=== PATIENT | female | born 1995 | race Caucasian/White ===

== ENCOUNTER 2019-12-04 18:26 | Emergency (ER) | payer OTHER ==
--- NOTE | 2019-12-04 20:09 | EDM.PDOC ---
ED HPI GENERAL MEDICAL PROBLEM - General Chief Complaint: General Stated Complaint: FLU Time Seen by Provider: 12/04/19 18:42 Source of Information: Reports: Patient History Limitations: Reports: No Limitations - History of Present Illness INITIAL COMMENTS - FREE TEXT/NARRATIVE: HISTORY AND PHYSICAL: History of present illness: Patient is a 24-year-old female who presents to the ED today with concern of generalized body aches, sore throat, and cough over the last 2 days. Patient states that her daughter had started with similar symptoms of cough 3 days ago. Mother states she has not taken any thing for her symptoms. Mother denies any other symptoms or concerns. Patient denies chest pain, shortness of breath. Denies headache, neck stiff ness , change in vision, syncope, or near syncope. Denies nausea, vomiting, abdominal pain, diarrhea, constipation, or dysuria. Has not noted any blood in urine or stool. Patient has been eating and drinking appropriately. Review of systems: As per history of present illness and below otherwise all systems reviewed and negative. Past medical history: As per history of present illness and as reviewed below otherwise noncontributory. Surgical history: As per history of present illness and as reviewed below otherwise noncontributory. Social history: See social history for further information Family history: As per history of present illness and as reviewed below otherwise noncontributory. Physical exam: General: Patient is alert, oriented, and in no acute distress. Patient sitting comfortably on exam table. HEENT: Atraumatic, normocephalic, pupils equal and reactive bilaterally, negative for conjunctival pallor or scleral icterus, mucous membranes moist, TMs normal bilaterally, throat is erythematous and tonsils without exudate and equal, uvula midline, neck supple, nontender, trachea midline. No drooling or trismus noted. No meningeal signs. No hot potato voice noted. Lungs: Clear to auscultation, breath sounds equal bilaterally, chest nontender. Heart: S1S2, regular rate and rhythm without overt murmur Abdomen: Soft, nondistended, nontender. Negative for masses or hepatosplenomegaly. Negative for costovertebral tenderness. Pelvis: Stable nontender. Genitourinary: Deferred. Rectal: Deferred. Skin: Intact, warm, dry. No lesions or rashes noted. Extremities: Atraumatic, negative for cords or calf pain. Neurovascular unremarkable. Neuro: Awake, alert, oriented. Cranial nerves II through XII unremarkable. Cerebellum unremarkable. Motor and sensory unremarkable throughout. Exam nonfocal. Notes: Discussed importance for follow-up with a primary care provider. Voices understanding and is agreeable to plan of care. Denies any further questions or concerns at this time. Diagnostics: Influenza, Strep Therapeutics: None Prescription: Amoxicillin, Tamiflu Impression: Influenza A Strep pharyngitis Plan: 1. Take medication as prescribed. You can alternate ibuprofen and Tylenol as directed for pain and discomfort. 2. Follow-up with your primary care provider as discussed. Return to the ED as needed and as discussed. Definitive disposition and diagnosis as appropriate pending reevaluation and review of above. Back Pain Score (Numeric/FACES): 8 - Related Data Allergies Allergy/AdvReac Type Severity Reaction Status Date / Time No Known Allergies Allergy Verified 12/04/19 19:29 Home Meds: Home Meds . 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 Musculoskeletal History: Reports: None Neurological History: Reports: None Psychiatric History: Reports: None Endocrine/Metabolic History: Reports: None Hematologic History: Reports: None Immunologic History: Reports: None Oncologic (Cancer) History: Reports: None Dermatologic History: Reports: None - Infectious Disease History Infectious Disease History: Reports: None - Past Surgical History Head Surgeries/Procedures: Reports: None GI Surgical History: Reports: Appendectomy Female Surgical History: Reports: None Social & Family History - Tobacco Use Smoking Status *Q: Never Smoker - Caffeine Use Caffeine Use: Reports: None - Recreational Drug Use Recreational Drug Use: No ED ROS GENERAL - Review of Systems Review Of Systems: Comprehensive ROS is negative, except as noted in HPI. ED EXAM, GENERAL - Physical Exam Exam: See Below (see dictation) Course - Vital Signs Last Recorded V/S: Last Vital Signs Temp 97.8 F 12/04/19 19:26 Pulse 102 H 12/04/19 19:26 Resp 20 12/04/19 19:26 BP 130/83 12/04/19 19:26 Pulse Ox 96 12/04/19 19:26 Departure - Departure Time of Disposition: 20:12 Disposition: Home, Self-Care 01 Clinical Impression: Strep pharyngitis, Influenza A - Discharge Information Referrals: PCP,None [Primary Care Provider] - Forms: ED Department Discharge Additional Instructions: The following information is given to patients seen in the emergency department who are being discharged to home. This information is to outline your options for follow-up care. We provide all patients seen in our emergency department with a follow-up referral. The need for follow-up, as well as the timing and circumstances, are variable depending upon the specifics of your emergency department visit. If you don't have a primary care physician on staff, we will provide you with a referral. We always advise you to contact your personal physician following an emergency department visit to inform them of the circumstance of the visit and for follow-up with them and/or the need for any referrals to a consulting specialist. The emergency department will also refer you to a specialist when appropriate. This referral assures that you have the opportunity for follow-up care with a specialist. All of these measure are taken in an effort to provide you with optimal care, which includes your follow-up. Under all circumstances we always encourage you to contact your private physician who remains a resource for coordinating your care. When calling for follow-up care, please make the office aware that this follow-up is from your recent emergency room visit. If for any reason you are refused follow-up, please contact the [facility] Emergency Department at and asked to speak to the emergency department charge nurse. [facility] [address] [place] [id number] [id number] 1. Take medication as prescribed. You can alternate ibuprofen and Tylenol as directed for pain and discomfort. 2. Follow-up with your primary care provider as discussed. Return to the ED as needed and as discussed. Sepsis Event Note - Evaluation Sepsis Screening Result: No Definite Risk - Focused Exam Vital Signs: Vital Signs Temp Pulse Resp BP Pulse Ox 12/04/19 19:26 97.8 F 102 H 20 130/83 96 Date Exam was Performed: 12/04/19 Time Exam was Performed: 20:12
== END 2019-12-04 20:35 | disposition home or self-care (01) ==
LOC: MW.ED 18:26 → EDBD 18:26 → MW.ED 20:35
DX: J10.1 Influenza due to other identified influenza virus with other respiratory manifestations (principal)
CPT/HCPCS: 87804; 87880-QW; 99283

== ENCOUNTER 2020-02-04 19:29 | Emergency (ER) | payer SELFPAY ==
--- NOTE | 2020-02-04 19:51 | EDM.PDOC ---
ED HPI GENERAL MEDICAL PROBLEM - General Chief Complaint: Genitourinary Problem Stated Complaint: KIDNEY PAIN Time Seen by Provider: 02/04/20 19:30 Source of Information: Reports: Patient History Limitations: Reports: No Limitations - History of Present Illness INITIAL COMMENTS - FREE TEXT/NARRATIVE: Patient is a 24-year-old female is complaining having severe left back pain that started earlier today. Pain is somewhat worse with movement. She denies any dysuria or hematuria but is complaining of increased urinary frequency. Patient has had a pyelonephritis before. She has no history of kidney stones. She is not coughing and denies any fever or chills. Has had no diarrhea. She is not currently nauseous and denies any abdominal pain. She denies any radiation or pain but she is having some pain also on the right side in the CVA area. She did treat herself with Tylenol about 4 PM which did give her some relief. Last menstrual period was last week but is only for 1 day which is abnormal for her. Patient is sexually active and not using any control. Onset: Today Duration: Getting Worse Location: Reports: Back Quality: Reports: Sharp, Stabbing Severity: Severe Improves with: Reports: None Worsens with: Reports: Movement Associated Symptoms: Reports: No Other Symptoms back Pain Score (Numeric/FACES): 9 - Related Data Allergies Allergy/AdvReac Type Severity Reaction Status Date / Time No Known Allergies Allergy Verified 02/04/20 19:45 Home Meds: Home Meds . 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 Musculoskeletal History: Reports: None Neurological History: Reports: None Psychiatric History: Reports: None Endocrine/Metabolic History: Reports: None Hematologic History: Reports: None Immunologic History: Reports: None Oncologic (Cancer) History: Reports: None Dermatologic History: Reports: None - Infectious Disease History Infectious Disease History: Reports: None - Past Surgical History Head Surgeries/Procedures: Reports: None GI Surgical History: Reports: Appendectomy Female Surgical History: Reports: None Social & Family History - Caffeine Use Caffeine Use: Reports: None ED ROS GENERAL - Review of Systems Review Of Systems: Comprehensive ROS is negative, except as noted in HPI. ED EXAM, RENAL/ - Physical Exam Exam: See Below General Appearance: Alert, Mild Distress Head: Atraumatic, Normocephalic Neck: Normal Inspection, Supple, Non-Tender Respiratory/Chest: No Respiratory Distress, Lungs Clear, Normal Breath Sounds Cardiovascular: Regular Rate, Rhythm, No JVD GI/Abdominal: Normal Bowel Sounds, Soft, Non-Tender, No Organomegaly, No Distention, No Mass Back Exam: CVA Tenderness (L) (Very mild right CVA tenderness.) Extremities: Normal Inspection Neurological: Alert, Oriented, Normal Cognition Psychiatric: Normal Affect Skin Exam: Warm, Dry, Intact Course - Vital Signs Text/Narrative:: Patient's blood work and urine were negative. She felt moderately better with IV fluids and meds. Concerned she might have an obstructing stone and ordered a CT of the abdomen pelvis which was read by radiologist as normal. I have informed patient that all her tests were normal and then most likely her symptoms are caused by muscle spasm/strain. Recommending heat and/or ice, ibuprofen and Flexeril as needed. We will also give her an antiemetic. And recommend she follow-up with her PCP if symptoms continue and she may return to emergency department if her symptoms are worse. Last Recorded V/S: Last Vital Signs Temp 36.3 C 02/04/20 19:34 Pulse 67 02/04/20 21:26 Resp 16 02/04/20 21:26 BP 114/71 02/04/20 21:26 Pulse Ox 99 02/04/20 21:26 - Orders/Labs/Meds Orders: Active Orders 24 hr Category Date Time Status Sodium Chloride 0.9% [Saline Flush] Med 02/04/20 19:57 Active 10 ml FLUSH ASDIRECTED PRN Sodium Chloride 0.9% [Saline Flush] Med 02/04/20 19:57 Active 2.5 ml FLUSH ASDIRECTED PRN Saline Lock Insert [OM.PC] Stat Oth 02/04/20 19:57 Ordered Medication Orders Sodium Chloride (Saline Flush) 10 ml FLUSH ASDIRECTED PRN PRN Reason: Keep Vein Open Sodium Chloride (Saline Flush) 2.5 ml FLUSH ASDIRECTED PRN PRN Reason: Keep Vein Open Labs: Laboratory Tests 03/26/20 03/26/20 03/26/20 Range/Units 19:50 19:50 20:05 WBC 6.68 (4.0-11.0) K/uL RBC 4.76 (4.30-5.90) M/uL Hgb 12.3 (12.0-16.0) g/dL Hct 38.4 (36.0-46.0) % MCV 80.7 (80.0-98.0) fL MCH 25.8 L (27.0-32.0) pg MCHC 32.0 (31.0-37.0) g/dL RDW Std Deviation 47.4 (28.0-62.0) fl RDW Coeff of Andrea 16 H (11.0-15.0) % Plt Count 412 H (150-400) K/uL MPV 9.70 (7.40-12.00) fL Neut % (Auto) 47.5 L (48.0-80.0) % Lymph % (Auto) 39.5 (16.0-40.0) % Posey % (Auto) 11.4 (0.0-15.0) % Eos % (Auto) 1.0 (0.0-7.0) % Baso % (Auto) 0.6 (0.0-1.5) % Neut # (Auto) 3.2 (1.4-5.7) K/uL Lymph # (Auto) 2.6 H (0.6-2.4) K/uL Posey # (Auto) 0.8 (0.0-0.8) K/uL Eos # (Auto) 0.1 (0.0-0.7) K/uL Baso # (Auto) 0.0 (0.0-0.1) K/uL Nucleated RBC % 0.0 /100WBC Nucleated RBCs # 0 K/uL Sodium (136-145) mmol/L Potassium (3.5-5.1) mmol/L Chloride (98-107) mmol/L Carbon Dioxide (21.0-32.0) mmol/L BUN (7.0-18.0) mg/dL Creatinine (0.6-1.0) mg/dL Est Cr Clr Drug Dosing mL/min Estimated GFR (MDRD) ml/min Glucose (74-106) mg/dL Calcium (8.5-10.1) mg/dL Total Bilirubin (0.2-1.0) mg/dL AST (15-37) IU/L ALT (14-63) IU/L Alkaline Phosphatase (46-116) U/L Total Protein (6.4-8.2) g/dL Albumin (3.4-5.0) g/dL Globulin (2.6-4.0) g/dL Albumin/Globulin Ratio (0.9-1.6) Urine Color YELLOW Urine Appearance CLEAR Urine pH 7.0 (5.0-8.0) Ur Specific [place] 1.020 (1.001-1.035) Urine Protein NEGATIVE (NEGATIVE) mg/dL Urine Glucose (UA) NEGATIVE (NEGATIVE) mg/dL Urine Ketones NEGATIVE (NEGATIVE) mg/dL Urine Occult Blood NEGATIVE (NEGATIVE) Urine Nitrite NEGATIVE (NEGATIVE) Urine Bilirubin NEGATIVE (NEGATIVE) Urine Urobilinogen 1.0 (<2.0) EU/dL Ur Leukocyte Esterase NEGATIVE (NEGATIVE) Urine HCG, Qual NEGATIVE (NEGATIVE) 02/04/20 Range/Units 20:05 WBC (4.0-11.0) K/uL RBC (4.30-5.90) M/uL Hgb (12.0-16.0) g/dL Hct (36.0-46.0) % MCV (80.0-98.0) fL MCH (27.0-32.0) pg MCHC (31.0-37.0) g/dL RDW Std Deviation (28.0-62.0) fl RDW Coeff of Andrea (11.0-15.0) % Plt Count (150-400) K/uL MPV (7.40-12.00) fL Neut % (Auto) (48.0-80.0) % Lymph % (Auto) (16.0-40.0) % Posey % (Auto) (0.0-15.0) % Eos % (Auto) (0.0-7.0) % Baso % (Auto) (0.0-1.5) % Neut # (Auto) (1.4-5.7) K/uL Lymph # (Auto) (0.6-2.4) K/uL Posey # (Auto) (0.0-0.8) K/uL Eos # (Auto) (0.0-0.7) K/uL Baso # (Auto) (0.0-0.1) K/uL Nucleated RBC % /100WBC Nucleated RBCs # K/uL Sodium 140 (136-145) mmol/L Potassium 3.7 (3.5-5.1) mmol/L Chloride 105 (98-107) mmol/L Carbon Dioxide 26.8 (21.0-32.0) mmol/L BUN 8 (7.0-18.0) mg/dL Creatinine 0.8 (0.6-1.0) mg/dL Est Cr Clr Drug Dosing 96.73 mL/min Estimated GFR (MDRD) > 60.0 ml/min Glucose 76 (74-106) mg/dL Calcium 8.9 (8.5-10.1) mg/dL Total Bilirubin 0.2 (0.2-1.0) mg/dL AST 17 (15-37) IU/L ALT 29 (14-63) IU/L Alkaline Phosphatase 64 (46-116) U/L Total Protein 7.7 (6.4-8.2) g/dL Albumin 3.9 (3.4-5.0) g/dL Globulin 3.8 (2.6-4.0) g/dL Albumin/Globulin Ratio 1.0 (0.9-1.6) Urine Color Urine Appearance Urine pH (5.0-8.0) Ur Specific [place] (1.001-1.035) Urine Protein (NEGATIVE) mg/dL Urine Glucose (UA) (NEGATIVE) mg/dL Urine Ketones (NEGATIVE) mg/dL Urine Occult Blood (NEGATIVE) Urine Nitrite (NEGATIVE) Urine Bilirubin (NEGATIVE) Urine Urobilinogen (<2.0) EU/dL Ur Leukocyte Esterase (NEGATIVE) Urine HCG, Qual (NEGATIVE) Meds: Medications Generic Name Dose Route Start Last Admin Trade Name Freq PRN Reason Stop Dose Admin Sodium Chloride 10 ml 02/04/20 19:57 Saline Flush FLUSH ASDIRECTED PRN Keep Vein Open Sodium Chloride 2.5 ml 02/04/20 19:57 Saline Flush FLUSH ASDIRECTED PRN Keep Vein Open Discontinued Medications Generic Name Dose Route Start Last Admin Trade Name Freq PRN Reason Stop Dose Admin Fentanyl 25 mcg 02/04/20 20:30 02/04/20 20:45 Fentanyl IVPUSH 02/04/20 20:31 25 mcg ONETIME ONE Administration Sodium Chloride 1,000 mls @ 999 mls/hr 02/04/20 19:54 02/04/20 20:15 Normal Saline IV 02/04/20 20:54 999 mls/hr .BOLUS ONE Administration Ketorolac Tromethamine 30 mg 02/04/20 19:55 02/04/20 20:16 Toradol IVPUSH 02/04/20 19:56 30 mg ONETIME ONE Administration Ondansetron HCl 4 mg 02/04/20 19:57 02/04/20 20:15 Zofran IVPUSH 02/04/20 19:58 4 mg ONETIME ONE Administration Departure - Departure Time of Disposition: 21:46 Disposition: Home, Self-Care 01 Condition: Good Clinical Impression: Back pain - Discharge Information Instructions: Acute Back Pain, Adult Referrals: PCP,None [Primary Care Provider] - Forms: ED Department Discharge Additional Instructions: The following information is given to patients seen in the emergency department who are being discharged to home. This information is to outline your options for follow-up care. We provide all patients seen in our emergency department with a follow-up referral. The need for follow-up, as well as the timing and circumstances, are variable depending upon the specifics of your emergency department visit. If you don't have a primary care physician on staff, we will provide you with a referral. We always advise you to contact your personal physician following an emergency department visit to inform them of the circumstance of the visit and for follow-up with them and/or the need for any referrals to a consulting specialist. The emergency department will also refer you to a specialist when appropriate. This referral assures that you have the opportunity for follow-up care with a specialist. All of these measure are taken in an effort to provide you with optimal care, which includes your follow-up. Under all circumstances we always encourage you to contact your private physician who remains a resource for coordinating your care. When calling for follow-up care, please make the office aware that this follow-up is from your recent emergency room visit. If for any reason you are refused follow-up, please contact the [facility] Emergency Department at and asked to speak to the emergency department charge nurse. Care Plan Goals: Heat and/or ice. Naprosyn with meals. Follow-up with PCP if not improving. Return to emergency department if worse. Flexeril and Phenergan as needed. Sepsis Event Note - Evaluation Sepsis Screening Result: No Definite Risk - Focused Exam Vital Signs: Vital Signs Temp Pulse Resp BP Pulse Ox 02/04/20 21:26 67 16 114/71 99 02/04/20 19:34 36.3 C 93 18 114/77 97 Date Exam was Performed: 02/04/20 Time Exam was Performed: 21:43 - My Orders Last 24 Hours: My Active Orders 02/04/20 19:57 Sodium Chloride 0.9% [Saline Flush] 10 ml FLUSH ASDIRECTED PRN Sodium Chloride 0.9% [Saline Flush] 2.5 ml FLUSH ASDIRECTED PRN Saline Lock Insert [OM.PC] Stat - Assessment/Plan Last 24 Hours: My Active Orders 02/04/20 19:57 Sodium Chloride 0.9% [Saline Flush] 10 ml FLUSH ASDIRECTED PRN Sodium Chloride 0.9% [Saline Flush] 2.5 ml FLUSH ASDIRECTED PRN Saline Lock Insert [OM.PC] Stat
[2020-02-04] MEDS ORDERED: Sodium Chloride 0.9% 1,000 ML IV ONE (19:54)
[2020-02-04] MEDS ORDERED: Ketorolac 30 MG/ML SDV IVPUSH ONE (19:55)
[2020-02-04] MEDS ORDERED: Sodium Chloride 0.9% 10 ML Syringe FLUSH PRN (19:57)
[2020-02-04] MEDS ORDERED: Ondansetron 4 MG/2 ML SDV IVPUSH ONE (19:57)
[2020-02-04] MEDS ORDERED: Sodium Chloride 0.9% 2.5 ML Syringe FLUSH PRN (19:57)
[2020-02-04] MEDS ORDERED: fentaNYL 50 MCG/ML SDV IVPUSH ONE (20:30)
[2020-02-04 20:40] LABS: BLOOD UREA NITROGEN,BUN 8 mg/dL (7.0-18.0); CARBON DIOXIDE,CO2 26.8 mmol/L (21.0-32.0); CHLORIDE,CL 105 mmol/L (98-107); GLUCOSE RANDOM 76 mg/dL (74-106); POTASSIUM,K 3.7 mmol/L (3.5-5.1); SODIUM,NA 140 mmol/L (136-145)
--- NOTE | 2020-02-04 21:36 | CT ---
INDICATION: Left greater than right flank and abdominal pain with vomiting. COMPARISON: None available TECHNIQUE: CT examination of the abdomen and pelvis was performed without contrast enhancement using 3 mm thick axial sections from the lung bases through the pubic symphysis. Oral contrast was not administered. Please note that all CT scans at this facility use dose modulation, iterative reconstruction, and/or weight-based dosing when appropriate to reduce radiation dose to as low as reasonably achievable. FINDINGS: In the abdomen, the unenhanced liver, spleen, pancreas, and adrenals are normal in appearance. The unenhanced kidneys are normal in appearance. The gallbladder is normal in appearance. The abdominal aorta is normal in caliber with no sign of dilatation. There is no sign of retroperitoneal mass or adenopathy. The stomach, loops of small bowel, and colon in the abdomen are normal in appearance. In the pelvis, the appendix is nonvisualized, but there is no sign of an inflammatory process in the area of the appendix. Surgical clips are seen in the area of the appendix consistent with previous appendectomy. The loops of small bowel and colon in the pelvis are normal in appearance. The uterus and adnexal regions are normal in appearance. The urinary bladder is normal in appearance. There is no sign of pelvic or inguinal mass or adenopathy. There is no sign of any free air or free fluid in the abdomen or pelvis. There is mild linear atelectasis in the dependent portions of both lower lobes. The lung bases are otherwise clear. The osseous structures are normal in appearance for the patient`s age. IMPRESSION: Nothing seen to explain the patient`s flank pain, with normal appearance of the urinary system bilaterally. No sign of any calculus or obstruction. Nothing seen to explain the patient`s vomiting, with normal appearance of the stomach and small bowel. Normal CT of the abdomen without contrast. Normal CT of the pelvis without contrast status post appendectomy. Please note that all CT scans at this facility use dose modulation, iterative reconstruction, and/or weight-based dosing when appropriate to reduce radiation dose to as low as reasonably achievable. Dictated by Mitul Rowan MD @ Feb 04 2020 9:32PM Signed by Dr. Mitul Rowan @ Feb 04 2020 9:36PM
== END 2020-02-04 22:00 | disposition home or self-care (01) ==
LOC: MW.ED 19:29
DX: M54.5 Low back pain (principal)
CPT/HCPCS: 36415; 74176; 80053; 81003; 81025; 85025; 96361; 96374; 96375; 99284; J1885; J2405; J3010; J7030

== ENCOUNTER 2020-03-14 19:37 | Emergency (ER) | payer SELFPAY ==
--- NOTE | 2020-03-14 20:02 | EDM.PDOC ---
ED HPI GENERAL MEDICAL PROBLEM - General Chief Complaint: Neck Problem Stated Complaint: SICK Time Seen by Provider: 03/14/20 20:02 Source of Information: Reports: Patient History Limitations: Reports: No Limitations - History of Present Illness INITIAL COMMENTS - FREE TEXT/NARRATIVE: HISTORY AND PHYSICAL: History of present illness: Patient is a 24-year-old female presents to the ED with complaint of painful nodule behind her ear. She states she just noticed it yesterday, pain radiates to her face and neck. Denies fevers or chills. Denies any significant past medical history. Review of systems: As per history of present illness and below otherwise all systems reviewed and negative. Past medical history: As per history of present illness and as reviewed below otherwise noncontributory. Surgical history: As per history of present illness and as reviewed below otherwise noncontributory. Social history: No reported history of drug or alcohol abuse. Family history: As per history of present illness and as reviewed below otherwise noncontributory. Physical exam: General: Patient sitting comfortably in no acute distress and nontoxic appearing HEENT: Swollen 1.5cm mobile nodule behind the right ear. There is no erythema and no mastoid tenderness to palpation. TMs are clear bilaterally. Atraumatic, normocephalic, pupils reactive, negative for conjunctival pallor or scleral icterus, mucous membranes moist, throat clear, neck supple, nontender, trachea midline. No meningeal signs. Neuro: Awake, alert, oriented. Cranial nerves II through XII unremarkable. Cerebellum unremarkable. Motor and sensory unremarkable throughout. Exam nonfocal. Notes: Diagnostics: none Therapeutics: none Prescriptions: Augmentin Impression: Lymphadenopathy Plan: Take antibiotic as instructed Alternate tylenol and motrin as needed Follow up with primary care provider Return to ED as needed as discussed Definitive disposition and diagnosis as appropriate pending reevaluation and review of above. right neck Pain Score (Numeric/FACES): 8 - Related Data Allergies Allergy/AdvReac Type Severity Reaction Status Date / Time No Known Allergies Allergy Verified 03/14/20 19:58 Home Meds: Home Meds Amoxicillin/Potassium Clav [Augmentin 875-125 Tablet] 1 each PO BID 7 Days #14 tablet 03/14/20 [Rx] Past Medical History HEENT History: Reports: None Cardiovascular History: Reports: None Respiratory History: Reports: None Gastrointestinal History: Reports: None Genitourinary History: Reports: None SURGICAL BRACE MAKER History: Reports: None Musculoskeletal History: Reports: None Neurological History: Reports: None Psychiatric History: Reports: None Endocrine/Metabolic History: Reports: None Hematologic History: Reports: None Immunologic History: Reports: None Oncologic (Cancer) History: Reports: None Dermatologic History: Reports: None - Infectious Disease History Infectious Disease History: Reports: None - Past Surgical History Head Surgeries/Procedures: Reports: None GI Surgical History: Reports: Appendectomy Female Surgical History: Reports: None Social & Family History - Family History Family Medical History: Noncontributory - Caffeine Use Caffeine Use: Reports: None ED ROS GENERAL - Review of Systems Review Of Systems: Comprehensive ROS is negative, except as noted in HPI. ED EXAM, UPPER BACK/NECK PAIN - Physical Exam Exam: See Below (see dictation) Course - Vital Signs Last Recorded V/S: Last Vital Signs Temp 97.1 F 03/14/20 19:55 Pulse 72 03/14/20 19:55 Resp 18 03/14/20 19:55 BP 128/78 03/14/20 19:55 Pulse Ox 98 03/14/20 19:55 Departure - Departure Time of Disposition: 20:15 Disposition: Home, Self-Care 01 Condition: Good Clinical Impression: Lymphadenopathy - Discharge Information Prescriptions: Amoxicillin/Potassium Clav [Augmentin 875-125 Tablet] 1 each PO BID 7 Days #14 tablet Referrals: PCP,None [Primary Care Provider] - Forms: ED Department Discharge Additional Instructions: The following information is given to patients seen in the emergency department who are being discharged to home. This information is to outline your options for follow-up care. We provide all patients seen in our emergency department with a follow-up referral. The need for follow-up, as well as the timing and circumstances, are variable depending upon the specifics of your emergency department visit. If you don't have a primary care physician on staff, we will provide you with a referral. We always advise you to contact your personal physician following an emergency department visit to inform them of the circumstance of the visit and for follow-up with them and/or the need for any referrals to a consulting specialist. The emergency department will also refer you to a specialist when appropriate. This referral assures that you have the opportunity for follow-up care with a specialist. All of these measure are taken in an effort to provide you with optimal care, which includes your follow-up. Under all circumstances we always encourage you to contact your private physician who remains a resource for coordinating your care. When calling for follow-up care, please make the office aware that this follow-up is from your recent emergency room visit. If for any reason you are refused follow-up, please contact the [facility] Emergency Department at and asked to speak to the emergency department charge nurse. [facility] [address] [place] [id number] [address] Take antibiotic as instructed Alternate tylenol and motrin as needed Follow up with primary care provider Return to ED as needed as discussed Sepsis Event Note - Evaluation Sepsis Screening Result: No Definite Risk - Focused Exam Vital Signs: Vital Signs Temp Pulse Resp BP Pulse Ox 03/14/20 19:55 97.1 F 72 18 128/78 98 Date Exam was Performed: 03/14/20 Time Exam was Performed: 20:19
== END 2020-03-14 20:25 | disposition home or self-care (01) ==
LOC: MW.ED 19:37
DX: R59.0 Localized enlarged lymph nodes (principal)
CPT/HCPCS: 99282; 99283

== ENCOUNTER 2020-06-17 20:30 | Emergency (ER) | payer SELFPAY ==
--- NOTE | 2020-06-17 20:49 | EDM.PDOC ---
ED HPI GENERAL MEDICAL PROBLEM - General Chief Complaint: Trauma Stated Complaint: TRAUMA ALERT Time Seen by Provider: 06/17/20 20:31 Source of Information: Reports: Patient - History of Present Illness INITIAL COMMENTS - FREE TEXT/NARRATIVE: 25F approx 11-weeks presents after a fall down approx 7 stairs. Hit L sided upper abdomen/lower chest/torso on a baby gate. Denies SOB. Notes pain in abdomen/chest where she fell. No vaginal bleeding. No N/V. Denies head injury and no LOC. 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: Reports: Musculoskeletal History: Reports: None Neurological History: Reports: None Psychiatric History: Reports: None Endocrine/Metabolic History: Reports: None Insulin Pump Model and Bone Char Operator: N/A Hematologic History: Reports: None Immunologic History: Reports: None Oncologic (Cancer) History: Reports: None Dermatologic History: Reports: None - Infectious Disease History Infectious Disease History: Reports: None - Past Surgical History Head Surgeries/Procedures: Reports: None GI Surgical History: Reports: Appendectomy Female Surgical History: Reports: None Social & Family History - Family History Family Medical History: Noncontributory - Caffeine Use Caffeine Use: Reports: None - Recreational Drug Use Recreational Drug Use: No Review of Systems - Review of Systems Review Of Systems: Comprehensive ROS is negative, except as noted in HPI. ED EXAM, GENERAL - Physical Exam Exam: See Below Exam Limited By: No Limitations General Appearance: Alert, WD/WN, No Apparent Distress Eye Exam: Bilateral Eye: PERRL Ears: Normal External Exam, Normal Canal, Hearing Grossly Normal, Normal TMs Ear Exam: Bilateral Ear: Auricle Normal, Canal Normal, TM normal Nose: Normal Inspection, Normal Mucosa, No Blood Throat/Mouth: Normal Inspection, Normal Lips, Normal Teeth, Normal Gums, Normal Oropharynx, Normal Voice, No Airway Compromise Head: Atraumatic, Normocephalic Neck: Normal Inspection, Supple, Non-Tender, Full Range of Motion Respiratory/Chest: No Respiratory Distress, Lungs Clear, Normal Breath Sounds, No Accessory Muscle Use, Other (TTP of left lateral chest wall w/o overlyign skin changes or ecchymosis) Cardiovascular: Normal Peripheral Pulses, Regular Rate, Rhythm GI/Abdominal: Soft, Non-Tender, No Distention Back Exam: Normal Inspection Extremities: Normal Inspection, Normal Range of Motion, Non-Tender, Normal Capillary Refill Neurological: Alert, Oriented Psychiatric: Normal Affect, Normal Mood Skin Exam: Warm, Dry Course - Vital Signs Last Recorded V/S: Last Vital Signs Temp 97.3 F 06/17/20 20:37 Pulse 102 H 06/17/20 20:37 Resp 20 06/17/20 20:37 BP 124/78 06/17/20 20:37 Pulse Ox 100 06/17/20 20:37 - Orders/Labs/Meds Labs: Laboratory Tests 06/17/20 06/17/20 06/17/20 Range/Units 21:04 21:04 21:04 WBC 8.92 (4.0-11.0) K/uL RBC 4.44 (4.30-5.90) M/uL Hgb 12.1 (12.0-16.0) g/dL Hct 36.3 (36.0-46.0) % MCV 81.8 (80.0-98.0) fL MCH 27.3 (27.0-32.0) pg MCHC 33.3 (31.0-37.0) g/dL RDW Std Deviation 42.6 (28.0-62.0) fl RDW Coeff of Andrea 14 (11.0-15.0) % Plt Count 339 (150-400) K/uL MPV 9.40 (7.40-12.00) fL Neut % (Auto) 65.5 (48.0-80.0) % Lymph % (Auto) 21.0 (16.0-40.0) % [place] % (Auto) 11.3 (0.0-15.0) % Eos % (Auto) 1.6 (0.0-7.0) % Baso % (Auto) 0.6 (0.0-1.5) % Neut # (Auto) 5.9 H (1.4-5.7) K/uL Lymph # (Auto) 1.9 (0.6-2.4) K/uL [place] # (Auto) 1.0 H (0.0-0.8) K/uL Eos # (Auto) 0.1 (0.0-0.7) K/uL Baso # (Auto) 0.1 (0.0-0.1) K/uL Nucleated RBC % 0.0 /100WBC Nucleated RBCs # 0 K/uL INR 1.01 APTT 28.5 (18.6-31.3) SEC Sodium 136 (136-145) mmol/L Potassium 3.6 (3.5-5.1) mmol/L Chloride 102 (98-107) mmol/L Carbon Dioxide 25.1 (21.0-32.0) mmol/L BUN 8 (7.0-18.0) mg/dL Creatinine 0.8 (0.6-1.0) mg/dL Est Cr Clr Drug Dosing 88.15 mL/min Estimated GFR (MDRD) > 60.0 ml/min Glucose 83 (74-106) mg/dL Calcium 8.7 (8.5-10.1) mg/dL Magnesium 2.0 (1.8-2.4) mg/dL Total Bilirubin 0.1 L (0.2-1.0) mg/dL AST 14 L (15-37) IU/L ALT 19 (14-63) IU/L Alkaline Phosphatase 72 (46-116) U/L Troponin I < 0.050 (0.000-0.056) ng/mL Total Protein 8.1 (6.4-8.2) g/dL Albumin 3.8 (3.4-5.0) g/dL Globulin 4.3 H (2.6-4.0) g/dL Albumin/Globulin Ratio 0.9 (0.9-1.6) Lipase 135 (73-393) U/L HCG, Quant 45351.0 mIU/mL - Re-Assessments/Exams Free Text/Narrative Re-Assessment/Exam: 06/17/20 21:11 Patient presents s/p fall down 7 stairs. . Will get trauma labs, CXR, E- FAST, FHR Free Text/Narrative Re-Assessment/Exam: 06/17/20 21:29 Bedside E-FAST negative; FHR 160. Pending labs and CXR Free Text/Narrative Re-Assessment/Exam: Labs and CXR unremarkable; will d/c with OBGYN f/u, patient given strict return precautions for vaginal bleeding or worsening/changing quality of pain Departure - Departure Time of Disposition: 22:40 Disposition: Home, Self-Care 01 Condition: Good Clinical Impression: Fall (on) (from) other stairs and steps, initial encounter - Discharge Information *PRESCRIPTION DRUG MONITORING PROGRAM REVIEWED*: No *COPY OF PRESCRIPTION DRUG MONITORING REPORT IN PATIENT TAMAR: No Instructions: Preventing Injuries During , [id number] Referrals: PCP,None [Primary Care Provider] - Forms: ED Department Discharge Additional Instructions: The following information is given to patients seen in the emergency department who are being discharged to home. This information is to outline your options for follow-up care. We provide all patients seen in our emergency department with a follow-up referral. The need for follow-up, as well as the timing and circumstances, are variable depending upon the specifics of your emergency department visit. If you don't have a primary care physician on staff, we will provide you with a referral. We always advise you to contact your personal physician following an emergency department visit to inform them of the circumstance of the visit and for follow-up with them and/or the need for any referrals to a consulting specialist. The emergency department will also refer you to a specialist when appropriate. This referral assures that you have the opportunity for follow-up care with a specialist. All of these measure are taken in an effort to provide you with optimal care, which includes your follow-up. Under all circumstances we always encourage you to contact your private physician who remains a resource for coordinating your care. When calling for follow-up care, please make the office aware that this follow-up is from your recent emergency room visit. If for any reason you are refused follow-up, please contact the [facility] Emergency Department at and asked to speak to the emergency department charge nurse. Sepsis Event Note (ED) - Evaluation Sepsis Screening Result: No Definite Risk - Focused Exam Vital Signs: Vital Signs Temp Pulse Resp BP Pulse Ox 06/17/20 20:37 97.3 F 102 H 20 124/78 100
[2020-06-17 21:59] LABS: BLOOD UREA NITROGEN,BUN 8 mg/dL (7.0-18.0); CARBON DIOXIDE,CO2 25.1 mmol/L (21.0-32.0); CHLORIDE,CL 102 mmol/L (98-107); GLUCOSE RANDOM 83 mg/dL (74-106); LIPASE 135 U/L (73-393); POTASSIUM,K 3.6 mmol/L (3.5-5.1); SODIUM,NA 136 mmol/L (136-145)
--- NOTE | 2020-06-17 22:38 | CR ---
Chest: Portable view of the chest was obtained. Comparison: No prior chest imaging is available. Heart size and mediastinum are within normal limits. Lungs are clear with no acute parenchymal change. Bony structures are grossly intact. Impression: 1. Nothing acute is seen on portable chest x-ray. Diagnostic code #1 This report was dictated in MDT
== END 2020-06-17 22:49 | disposition home or self-care (01) ==
LOC: MW.ED 20:30
DX: O9A.211 Injury, poisoning and certain other consequences of external causes complicating pregnancy, first trimester (principal); R07.89 Other chest pain; R07.81 Pleurodynia; Z90.49 Acquired absence of other specified parts of digestive tract; Z3A.11 11 weeks gestation of pregnancy; W10.9XXA Fall (on) (from) unspecified stairs and steps, initial encounter
CPT/HCPCS: 36415; 71045; 71045-26; 80053; 83690; 83735; 84484; 84702; 85025; 85610; 85730; 99283; 99284-25

== ENCOUNTER 2020-07-09 14:33 | Emergency (ER) | payer OTHER ==
--- NOTE | 2020-07-09 16:00 | EDM.PDOC ---
ED HPI GENERAL MEDICAL PROBLEM - General Chief Complaint: ENT Problem Stated Complaint: SORE THROAT/SOB Time Seen by Provider: 07/09/20 14:44 - History of Present Illness INITIAL COMMENTS - FREE TEXT/NARRATIVE: HISTORY AND PHYSICAL: History of present illness: This 25-year-old otherwise healthy female who happens to be , 13 weeks, 3, para 2, presents emergency department after being in close contact with people COVID-19 and now developing headache, sore throat, runny nose and some slight intermittent cough. She denies any fevers. She has a headache but she says that this is very normal with her previous pregnancies. Some mild very minimal shortness of breath that she also feels is normal for her previous pregnancies. Denies tobacco smoke use or nicotine use, no EtOH or drugs. Sent here by her work for evaluation. Not having any problems or cramping. No bleeding or vaginal symptoms. No urinary symptoms. Review of systems: A 10-point review of systems, other than pertinent positives and negatives as stated per HPI, is otherwise negative. Past medical history: As per history of present illness and as reviewed below otherwise noncontributory. Surgical history: As per history of present illness and as reviewed below otherwise noncontributory. Social history: No reported history of drug or alcohol abuse. Family history: As per history of present illness and as reviewed below otherwise noncontributory. Physical exam: VITAL SIGNS: Reviewed. GENERAL: Anxious about her condition but otherwise doing well HEAD: No signs of head trauma. EYES: Pupils are equal. Extraocular motions intact. EARS: Hearing grossly intact. MOUTH: Oropharynx is normal. NECK: No adenopathy, no JVD. CHEST: Chest with clear breath sounds bilaterally. No wheezes, rales, or rhonchi. CARDIAC: Regular rate and rhythm. Normal S1 and S2, without murmurs, gallops, or rubs. VASCULAR: Peripheral pulses normal and equal in all extremities. ABDOMEN: Soft, without detectable tenderness. No sign of distention. No rebound or guarding, and no masses palpated. MUSCULOSKELETAL: Good range of motion of all major joints. Extremities without clubbing, cyanosis or edema. NEUROLOGIC EXAM: Alert and oriented x 3. No focal sensory or motor deficits. Speech normal. Follows commands. PSYCHIATRIC: Mood normal. SKIN: No rash or lesions. Initial Differential Diagnosis & Plan: Likely COVID-19 infection. We will obtain testing today. Bedside ultrasound to determine if the baby is in distress or not. Otherwise appears normal with a normal oxygen saturation. Patient does not feel that she would like to take the risk of a chest x-ray. We discussed that this was low risk however she has declined chest x-ray because her saturation is normal. Essentially she just wants to know if she is COVID positive or negative so she can go back to work or not. Definitive disposition and diagnosis as appropriate pending reevaluation and review of above. Sore throat Pain Score (Numeric/FACES): 7 - Related Data Allergies Allergy/AdvReac Type Severity Reaction Status Date / Time No Known Allergies Allergy Verified 07/09/20 15:10 Home Meds: Home Meds Mv-Mn/Iron/FA/Herbal/Digestive [ One Tablet] 1 tab PO DAILY 06/17/20 [History] Metoclopramide HCl [Reglan] 10 mg PO TID PRN #20 tablet 07/09/20 [Rx] Past Medical History HEENT History: Reports: None Cardiovascular History: Reports: None Respiratory History: Reports: None Gastrointestinal History: Reports: None Genitourinary History: Reports: None ASSEMBLER History: Reports: Musculoskeletal History: Reports: None Neurological History: Reports: None Psychiatric History: Reports: None Endocrine/Metabolic History: Reports: None Insulin Pump Model and Warehouse Driver: N/A Hematologic History: Reports: None Immunologic History: Reports: None Oncologic (Cancer) History: Reports: None Dermatologic History: Reports: None - Infectious Disease History Infectious Disease History: Reports: Chicken Pox - Past Surgical History Head Surgeries/Procedures: Reports: None GI Surgical History: Reports: Appendectomy Female Surgical History: Reports: None Social & Family History - Family History Family Medical History: Noncontributory - Tobacco Use Smoking Status *Q: Never Smoker - Caffeine Use Caffeine Use: Reports: Soda - Recreational Drug Use Recreational Drug Use: No ED ROS ENT - Review of Systems Review Of Systems: See Below (noted) ED EXAM, ENT - Physical Exam Exam: See Below (noted) ED ENT PROCEDURES - Additional/Other Procedure(s) Other (Free Text) Procedure(s): PROCEDURE NOTE: Limited OB / Pelvic Ultrasound (transabdominal) Indication: Confirm a live IUP All images obtained and evaluated by me. Images archived and saved. Findings: 1. [Uterus Identified] 2. [No significant Free Fluid Noted] 3. [Intrauterine identified] Interpretation: [Live IUP] Signed by Grover Bolden M.D. Course - Vital Signs Last Recorded V/S: Last Vital Signs Temp 97.1 F 07/09/20 15:10 Pulse 88 07/09/20 15:10 Resp 20 07/09/20 15:10 BP 129/79 07/09/20 15:10 Pulse Ox 99 07/09/20 15:10 - Orders/Labs/Meds Labs: Laboratory Tests 07/09/20 Range/Units 16:07 COVID-19 (KARIS) NEGATIVE (NEGATIVE) Departure - Departure Time of Disposition: 16:58 Disposition: Home, Self-Care 01 Clinical Impression: Viral syndrome, Second trimester - Discharge Information *PRESCRIPTION DRUG MONITORING PROGRAM REVIEWED*: Not Applicable *COPY OF PRESCRIPTION DRUG MONITORING REPORT IN PATIENT TAMAR: Not Applicable Prescriptions: Metoclopramide HCl [Reglan] 10 mg PO TID PRN #20 tablet PRN Reason: nausea Instructions: Viral Illness, Adult, Second Trimester of Referrals: Jagjit Zelaya MD [Primary Care Provider] - Forms: ED Department Discharge Additional Instructions: The following information is given to patients seen in the emergency department who are being discharged to home. This information is to outline your options fo r follow-up care. We provide all patients seen in our emergency department with a follow-up referral. The need for follow-up, as well as the timing and circumstances, are variable depending upon the specifics of your emergency department visit. If you don't have a primary care physician on staff, we will provide you with a referral. We always advise you to contact your personal physician following an emergency department visit to inform them of the circumstance of the visit and for follow-up with them and/or the need for any referrals to a consulting specialist. The emergency department will also refer you to a specialist when appropriate. This referral assures that you have the opportunity for follow-up care with a specialist. All of these measure are taken in an effort to provide you with optimal care, which includes your follow-up. Thank you for coming to the [facility] urgency department for your care today. It was Dr. Bolden's pleasure to take care of you. COVID-19 test is negative. Under all circumstances we always encourage you to contact your private physician who remains a resource for coordinating your care. When calling for follow-up care, please make the office aware that this follow-up is from your recent emergency room visit. If for any reason you are refused follow-up, please contact the [facility] Emergency Department at and asked to speak to the emergency department charge nurse. Sepsis Event Note (ED) - Evaluation Sepsis Screening Result: No Definite Risk - Focused Exam Vital Signs: Vital Signs Temp Pulse Resp BP Pulse Ox 07/09/20 15:10 97.1 F 88 20 129/79 99
== END 2020-07-09 17:32 | disposition home or self-care (01) ==
LOC: MW.ED 14:33
DX: O98.511 Other viral diseases complicating pregnancy, first trimester (principal); B34.9 Viral infection, unspecified; Z3A.13 13 weeks gestation of pregnancy; Z90.89 Acquired absence of other organs; Z20.828 Contact with and (suspected) exposure to other viral communicable diseases
CPT/HCPCS: 99282; 99284-25; U0002

== ENCOUNTER 2020-08-26 18:40 | Emergency (ER) | payer SELFPAY ==
--- NOTE | 2020-08-26 20:40 | EDM.PDOC ---
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 Patient reports that it started earlier today. Patient denies any recent fevers, shakes, chills, nausea, vomiting, diarrhea, dysuria, frequency, urgency, chest pain, shortness of breath. Patient denies any change in urinary frequency since . Patient denies any hematuria. Patient has any vaginal discharge or vaginal bleeding. Patient denies any vaginal fluid discharge. Patient reports that her prior 2 pregnancies were uneventful. Patient denies any history of hypertension, diabetes, liver, lung, kidney problems. Patient is status post appendectomy. Patient has no known drug allergies. Patient denies any tobacco alcohol or drugs. Review of systems: As per history of present illness and below otherwise all systems reviewed and negative. Past medical history: As per history of present illness and as reviewed below otherwise noncontributory. Surgical history: As per history of present illness and as reviewed below otherwise noncontributory. Social history: No reported history of drug or alcohol abuse. Family history: As per history of present illness and as reviewed below otherwise noncontributory. Physical exam: Constitutional: Patient is oriented to person, place, and time. Appears well- developed and well-nourished. No distress. HEENT: Moist mucous membranes Head: Normocephalic and atraumatic Eyes: Right eye exhibits no discharge. Left eye exhibits no discharge. No scleral icterus Neck: Normal range of motion. No tracheal deviation present. Cardiovascular: Normal rate and regular rhythm. Pulmonary: Effort normal, no respiratory distress. Abd: Soft, gravid, no rebound/guarding, no psoas or obturator signs, no tenderness at Mcberney's point, no Munoz's sign. Pt does not present with an exam that would be consistent with an acute surgical abdomen at this time, normal active bowel sounds, nontender to palpation. Musculoskeletal: Normal range of motion Neurologic: Alert and oriented to person, place and time. Skin: Edith Endave, warm and dry. Psychiatric: Normal mood and affect. Behavior is normal. Judgment and thought content normal. Nursing note and vital signs have been reviewed Patient's ER physical exam is significant for a nontender abdominal exam. Patient's uterine fundus is at the umbilicus. Pelvic exam reveals closed os with no vaginal bleeding. No masses palpable. Uterine fundus palpable at the umbilicus consistent with a 19 to 20-week gestation. Diagnostics: heart tones measured at 142 with RN. Urinalysis: Assessment and plan: 25-year-old female who is 3 para 2 presents ER today complaining of abdominal pain and pressure. Patient reports that she does not feel typical cramping but just feels pressure in her lower abdomen. Patient denies any other symptomatology. Patient is been asymptomatic otherwise. Patient's pelvic exam is unremarkable. Patient's heart tones within normal limits. No indication for emergent ultrasound at this time. We will check a urinalysis and reevaluate the patient. If urinalysis normal pain, patient will be discharged to home with instructions to follow-up with her OB doctor in the morning by phone for reevaluation. Patient's urinalysis is consistent with a urinary tract infection. Patient be started on cefdinir 300 mg twice daily x7 days. Patient has been instructed to follow-up with her LEGAL OFFICE ADMINISTRATOR doctor for repeat UA and reassurance of its clearance. Reassessment at the time of disposition demonstrates that the patient is in no acute distress. The patient has remained stable throughout the entire ED visit and is without objective evidence for acute process requiring urgent intervention or hospitalization. The patient is stable for discharge, counseling is provided as documented above, discussed symptomatic treatment and specific conditions for return. I have spoken with the patient/caregiver and discussed todays findings, in addition to providing specific details for the plan of care. Questions are answered and there is agreement with the plan. Definitive disposition and diagnosis as appropriate pending reevaluation and review of above. abdomen Pain Score (Numeric/FACES): 9 - Related Data Allergies Allergy/AdvReac Type Severity Reaction Status Date / Time No Known Allergies Allergy Verified 08/26/20 19:45 Home Meds: Home Meds Mv-Mn/Iron/FA/Herbal/Digestive [ One Tablet] 1 tab PO DAILY 06/17/20 [History] Cefdinir 300 mg PO Q12HR #14 capsule 08/26/20 [Rx] Past Medical History HEENT History: Reports: None Cardiovascular History: Reports: None Respiratory History: Reports: None Gastrointestinal History: Reports: None Genitourinary History: Reports: None LEGAL OFFICE ADMINISTRATOR History: Reports: Musculoskeletal History: Reports: None Neurological History: Reports: None Psychiatric History: Reports: None Endocrine/Metabolic History: Reports: None Insulin Pump Model and Welfare Service Aide: N/A Hematologic History: Reports: None Immunologic History: Reports: None Oncologic (Cancer) History: Reports: None Dermatologic History: Reports: None - Infectious Disease History Infectious Disease History: Reports: Chicken Pox - Past Surgical History Head Surgeries/Procedures: Reports: None GI Surgical History: Reports: Appendectomy Female Surgical History: Reports: None Social & Family History - Family History Family Medical History: Noncontributory - Tobacco Use Tobacco Use Status *Q: Never Tobacco User Second Hand Smoke Exposure: No - Caffeine Use Caffeine Use: Reports: None - Recreational Drug Use Recreational Drug Use: No ED ROS GENERAL - Review of Systems Review Of Systems: See Below ED EXAM, GENERAL - Physical Exam Exam: See Below Course - Vital Signs Last Recorded V/S: Last Vital Signs Temp 97.6 F 08/26/20 19:40 Pulse 99 08/26/20 19:40 Resp 18 08/26/20 19:40 BP 106/73 08/26/20 19:40 Pulse Ox 98 08/26/20 19:40 - Orders/Labs/Meds Orders: Active Orders 24 hr Category Date Time Status Heart Tones [ Heart Rate] [RC] Click to Edit Care 08/26/20 20:05 Active Labs: Laboratory Tests 08/26/20 Range/Units 19:50 Urine Color YELLOW Urine Appearance HAZY Urine pH 7.5 (5.0-8.0) Ur Specific [place] 1.015 (1.001-1.035) Urine Protein NEGATIVE (NEGATIVE) mg/dL Urine Glucose (UA) NEGATIVE (NEGATIVE) mg/dL Urine Ketones NEGATIVE (NEGATIVE) mg/dL Urine Occult Blood NEGATIVE (NEGATIVE) Urine Nitrite NEGATIVE (NEGATIVE) Urine Bilirubin NEGATIVE (NEGATIVE) Urine Urobilinogen 1.0 (<2.0) EU/dL Ur Leukocyte Esterase LARGE H (NEGATIVE) Urine RBC 0-4 (0-2/HPF) Urine WBC 10-15 (0-5/HPF) Ur Epithelial Cells FEW (NONE-FEW) Urine Bacteria 2+ H (NEGATIVE) Departure - Departure Time of Disposition: 20:40 Disposition: Home, Self-Care 01 Condition: Good Clinical Impression: Abdominal pain during , UTI in - Discharge Information Instructions: and Urinary Tract Infection, Abdominal Pain During , [id number] Referrals: PCP,None [Primary Care Provider] - Additional Instructions: Your evaluation in the emergency room today reveals that you have a urinary tract infection. You have been started on Omnicef 300 mg twice a day for 7 days. Please make an appointment to see your OB doctor within 1 week for reevaluation and assurance that the infection has cleared. Return to the ER if you start developing any fevers or any new or concerning conditions or symptoms. The following information is given to patients seen in the emergency department who are being discharged to home. This information is to outline your options for follow-up care. We provide all patients seen in our emergency department with a follow-up referral. The need for follow-up, as well as the timing and circumstances, are variable depending upon the specifics of your emergency department visit. If you don't have a primary care physician on staff, we will provide you with a referral. We always advise you to contact your personal physician following an emergency department visit to inform them of the circumstance of the visit and for follow-up with them and/or the need for any referrals to a consulting specialist. The emergency department will also refer you to a specialist when appropriate. This referral assures that you have the opportunity for follow-up care with a specialist. All of these measure are taken in an effort to provide you with optimal care, which includes your follow-up. Under all circumstances we always encourage you to contact your private physician who remains a resource for coordinating your care. When calling for follow-up care, please make the office aware that this follow-up is from your recent emergency room visit. If for any reason you are refused follow-up, please contact the [facility] Emergency Department at and asked to speak to the emergency department charge nurse. Sepsis Event Note (ED) - Evaluation Sepsis Screening Result: No Definite Risk - Focused Exam Vital Signs: Vital Signs Temp Pulse Resp BP Pulse Ox 08/26/20 19:40 97.6 F 99 18 106/73 98 - My Orders Last 24 Hours: My Active Orders 08/26/20 20:05 Heart Tones [ Heart Rate] [RC] Click to Edit - Assessment/Plan Last 24 Hours: My Active Orders 08/26/20 20:05 Heart Tones [ Heart Rate] [RC] Click to Edit
[2020-08-26] MEDS ORDERED: Cefdinir 300 MG Cap PO ONE (20:42)
== END 2020-08-26 20:55 | disposition home or self-care (01) ==
LOC: MW.ED 18:40
DX: O23.42 Unspecified infection of urinary tract in pregnancy, second trimester (principal); Z3A.19 19 weeks gestation of pregnancy
CPT/HCPCS: 81001; 99284; A9270; 99283

== ENCOUNTER 2020-12-11 20:56 | Emergency (ER) | payer BC ==
--- NOTE | 2020-12-11 21:46 | EDM.PDOC ---
ED HPI GENERAL MEDICAL PROBLEM - General Chief Complaint: General Stated Complaint: SICK Time Seen by Provider: 12/11/20 21:22 Source of Information: Reports: Patient History Limitations: Reports: No Limitations - History of Present Illness INITIAL COMMENTS - FREE TEXT/NARRATIVE: HISTORY AND PHYSICAL: History of present illness: Patient is a 25-year-old female who presents emergency room today with concern of a possible hemorrhoid that started last night. Patient states that when she felt the area last night was more soft and today it is larger and more painful. Patient did not state this on triage, but after thorough conversation with patient, she does express that she has pain "all over "in her vaginal area and states that she does have pain and pressure of the vagina. Patient is 35 weeks in gestation and follows with Dr. Selvin García at [facility]. He denies any vaginal bleeding at this time or any vaginal discharge. Patient denies any trauma or injury. Patient denies fever, chills, chest pain, shortness of breath, or cough. Denies headache, neck stiff ness, change in vision, syncope, or near syncope. Denies nausea, vomiting, abdominal pain, diarrhea, constipation, or dysuria. Has not noted any blood in urine or stool. Patient has been eating and drinking appropriately. Review of systems: As per history of present illness and below otherwise all systems reviewed and negative. Past medical history: As per history of present illness and as reviewed below otherwise noncontributory. Surgical history: As per history of present illness and as reviewed below otherwise noncontributory. Social history: See social history for further information Family history: As per history of present illness and as reviewed below otherwise noncontributory. Physical exam: General: Patient is alert, oriented, and in no acute distress. Patient laying on exam table does appear mildy uncomfortable laying on her side. HEENT: Atraumatic, normocephalic, pupils equal and reactive bilaterally, negative for conjunctival pallor or scleral icterus, mucous membranes moist, TMs normal bilaterally, throat clear, neck supple, nontender, trachea midline. No drooling or trismus noted. No meningeal signs. No hot potato voice noted. Lungs: Clear to auscultation, breath sounds equal bilaterally, chest nontender. Heart: S1S2, regular rate and rhythm without overt murmur Abdomen:Gravid, nontender. Negative for masses or hepatosplenomegaly. Negative for costovertebral tenderness. Pelvis: Stable nontender. Genitourinary: Deferred. Rectal: Label Drier at bedside Brittny. There is a 2cm external hemorrhoid that is painful to palpation. Otherwise, no other fissures, masses, lesions, noted. Tone intact. Skin: Intact, warm, dry. No lesions or rashes noted. Extremities: Atraumatic, negative for cords or calf pain. Neurovascular unremarkable. Neuro: Awake, alert, oriented. Cranial nerves II through XII unremarkable. Cerebellum unremarkable. Motor and sensory unremarkable throughout. Exam nonfocal. Notes: FHT at bedside 140bmp. Patient does have an external hemorrhoid at this time, however, she does appear to be more uncomfortable than I would anticipate for an external hemorrhoid and does express that she is having some vaginal pressure/pain. She is 35 weeks in gestation. Patient brought immediately up to labor and delivery for additional monitoring. Signs and symptoms that would prompt return to the ED thoroughly discussed with patient. Discussed importance for follow-up with her WATER AND SEWER SYSTEMS SUPERVISOR provider. Voices understanding and is agreeable to plan of care. Denies any further questions or concerns at this time. Diagnostics: None Therapeutics: None Prescription: Hydrocortisone/Lidocaine topical cream (a thorough discussion with patient that before using this medication, she should consult her WATER AND SEWER SYSTEMS SUPERVISOR provider for further safety concerns) Impression: Hemorrhoid Vaginal pain , 35 weeks Plan: 1. You can use Tylenol as directed for pain and discomfort. This is safe to use in . 2. Follow-up with your primary care provider/women's health provider as discussed. Return to the ED as needed and as discussed. 3. Before applying medication, make sure that you discuss this medication with your WATER AND SEWER SYSTEMS SUPERVISOR provider prior to use for safety assessment in as discussed. 4. Discharged to labor and delivery for additional monitoring. Definitive disposition and diagnosis as appropriate pending reevaluation and review of above. bottom Pain Score (Numeric/FACES): 9 - Related Data Allergies Allergy/AdvReac Type Severity Reaction Status Date / Time No Known Allergies Allergy Verified 12/11/20 21:12 Home Meds: Home Meds Mv-Mn/Iron/FA/Herbal/Digestive [ One Tablet] 1 tab PO DAILY 06/17/20 [History] metroNIDAZOLE [Metronidazole] 500 mg PO BID 7 Days #14 tablet 09/24/20 [Rx] Iron 1 dose PO ASDIRECTED 12/11/20 [History] Past Medical History HEENT History: Reports: None Cardiovascular History: Reports: None Respiratory History: Reports: None Gastrointestinal History: Reports: None Genitourinary History: Reports: None WATER AND SEWER SYSTEMS SUPERVISOR History: Reports: Musculoskeletal History: Reports: None Neurological History: Reports: None Psychiatric History: Reports: None Endocrine/Metabolic History: Reports: None Insulin Pump Model and Dolly Pusher: N/A Hematologic History: Reports: None Immunologic History: Reports: None Oncologic (Cancer) History: Reports: None Dermatologic History: Reports: None - Infectious Disease History Infectious Disease History: Reports: Chicken Pox - Past Surgical History Head Surgeries/Procedures: Reports: None GI Surgical History: Reports: Appendectomy Female Surgical History: Reports: None Social & Family History - Family History Family Medical History: No Pertinent Family History - Caffeine Use Caffeine Use: Reports: None ED ROS GENERAL - Review of Systems Review Of Systems: Comprehensive ROS is negative, except as noted in HPI. ED EXAM, GENERAL - Physical Exam Exam: See Below (see dictation) Course - Vital Signs Last Recorded V/S: Last Vital Signs Temp 97.9 F 12/11/20 21:09 Pulse 105 H 12/11/20 21:09 Resp 20 12/11/20 21:09 BP 118/79 12/11/20 21:09 Pulse Ox 97 12/11/20 21:09 Departure - Departure Time of Disposition: 21:41 Disposition: Still A Patient 30 Clinical Impression: Vaginal pain Hemorrhoid Qualifiers: Hemorrhoid type: unspecified Qualified Code(s): K64.9 - Unspecified hemorrhoids Qualifiers: Weeks of gestation: 35 weeks Qualified Code(s): Z3A.35 - 35 weeks gestation of - Discharge Information Referrals: Jagjit Zelaya MD [Primary Care Provider] - Additional Instructions: The following information is given to patients seen in the emergency department who are being discharged to home. This information is to outline your options for follow-up care. We provide all patients seen in our emergency department with a follow-up referral. The need for follow-up, as well as the timing and circumstances, are variable depending upon the specifics of your emergency department visit. If you don't have a primary care physician on staff, we will provide you with a referral. We always advise you to contact your personal physician following an emergency department visit to inform them of the circumstance of the visit and for follow-up with them and/or the need for any referrals to a consulting specialist. The emergency department will also refer you to a specialist when appropriate. This referral assures that you have the opportunity for follow-up care with a specialist. All of these measure are taken in an effort to provide you with optimal care, which includes your follow-up. Under all circumstances we always encourage you to contact your private physician who remains a resource for coordinating your care. When calling for follow-up care, please make the office aware that this follow-up is from your recent emergency room visit. If for any reason you are refused follow-up, please contact the [facility] Emergency Department at and asked to speak to the emergency department charge nurse. [facility] [address] [place] [address] [facility] [address] [place] [address] [facility] [address] [address] 1. You can use Tylenol as directed for pain and discomfort. This is safe to use in . 2. Follow-up with your primary care provider/women's health provider as discussed. Return to the ED as needed and as discussed. 3. Before applying medication, make sure that you discuss this medication with your WATER AND SEWER SYSTEMS SUPERVISOR provider prior to use for safety assessment in as discussed. 4. Discharged to labor and delivery for additional monitoring. Sepsis Event Note (ED) - Evaluation Sepsis Screening Result: No Definite Risk - Focused Exam Vital Signs: Vital Signs Temp Pulse Resp BP Pulse Ox 12/11/20 21:09 97.9 F 105 H 20 118/79 97
== END 2020-12-11 21:46 | disposition still patient (30) ==
LOC: MW.ED 20:56
DX: O22.43 Hemorrhoids in pregnancy, third trimester (principal); Z3A.35 35 weeks gestation of pregnancy
CPT/HCPCS: 99283

== ENCOUNTER 2020-12-29 10:03 | Emergency (ER) | payer BC ==
--- NOTE | 2020-12-29 10:06 | EDM.PDOC ---
ED HPI GENERAL MEDICAL PROBLEM - General Stated Complaint: STRAP THROAT Time Seen by Provider: 12/29/20 10:04 Source of Information: Reports: Patient History Limitations: Reports: No Limitations - History of Present Illness INITIAL COMMENTS - FREE TEXT/NARRATIVE: HISTORY AND PHYSICAL: History of present illness: Patient is a 25-year-old female who resents emergency room today with concern of nasal congestion/runny nose and sore throat over the last 2 days. Patient states that she is 39 weeks in gestation and supposed to get induced next 2 weeks that she does not have the baby sooner. Patient states that starting 2 days ago she started having a runny nose and a sore throat and was concerned about possible strep throat. Patient denies any abdominal pain, vaginal bleeding, or change in vaginal discharge. Patient states that she has been doing her kick counts at home and she feels baby moving frequently. Denies any decreased movement of baby. Denies any other symptoms or concerns. Patient denies fever, chills, chest pain, shortness of breath, or cough. Denies headache, neck stiff ness, change in vision, syncope, or near syncope. Denies nausea, vomiting, abdominal pain, diarrhea, constipation, or dysuria. Has not noted any blood in urine or stool. Patient has been eating and drinking appropriately. Review of systems: As per history of present illness and below otherwise all systems reviewed and negative. Past medical history: As per history of present illness and as reviewed below otherwise noncontributory. Surgical history: As per history of present illness and as reviewed below otherwise noncontributory. Social history: See social history for further information Family history: As per history of present illness and as reviewed below otherwise noncontributory. Physical exam: General: Patient is alert, oriented, and in no acute distress. Patient sitting comfortably on exam table. Vitals stable and reviewed by me. HEENT:Bilateral nasal drainage / congestion. Otherwise, atraumatic, normocephalic, pupils equal and reactive bilaterally, negative for conjunctival pallor or scleral icterus, mucous membranes moist, TMs normal bilaterally, throat clear, uvula midline, neck supple, nontender, trachea midline. No drooling or trismus noted. No meningeal signs. No hot potato voice noted. Lungs: Clear to auscultation, breath sounds equal bilaterally, chest nontender. Heart: S1S2, regular rate and rhythm without overt murmur Abdomen: Soft, gravid, nontender. Negative for masses or hepatosplenomegaly. Negative for costovertebral tenderness. Pelvis: Stable nontender. Genitourinary: Deferred. Rectal: Deferred. Skin: Intact, warm, dry. No lesions or rashes noted. Extremities: Atraumatic, negative for cords or calf pain. Neurovascular unremarkable. Neuro: Awake, alert, oriented. Cranial nerves II through XII unremarkable. Cerebellum unremarkable. Motor and sensory unremarkable throughout. Exam nonfocal. Notes: FHT at bedside 135 Signs and seaports that would prompt return to the ED thoroughly discussed with patient. Discussed the importance for follow up with her PCP/OBGYN. Voices understanding and is agreeable to plan of care. Denies any further que stions or concerns at this time. Diagnostics: Strep / COVID/ Flu Therapeutics: None Prescription: None Impression: Upper respiratory infection Pharyngitis Plan: 1. Use cough drops and/or other over the counter medications as needed for throat discomfort as discussed. Drink small but frequent sips of fluid to prevent dehydration. 2. You cause Tylenol as directed for pain and discomfort. This is safe to use in . 3. Follow up with your science instructor or primary care provider as discussed. 4. Return to the ED as needed and as discussed. Definitive disposition and diagnosis as appropriate pending reevaluation and review of above. 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 History: Reports: Musculoskeletal History: Reports: None Neurological History: Reports: None Psychiatric History: Reports: None Endocrine/Metabolic History: Reports: None Insulin Pump Model and Visual Arts Teacher: N/A Hematologic History: Reports: None Immunologic History: Reports: None Oncologic (Cancer) History: Reports: None Dermatologic History: Reports: None - Infectious Disease History Infectious Disease History: Reports: Chicken Pox - Past Surgical History Head Surgeries/Procedures: Reports: None GI Surgical History: Reports: Appendectomy Female Surgical History: Reports: None Social & Family History - Family History Family Medical History: No Pertinent Family History - Caffeine Use Caffeine Use: Reports: None ED ROS GENERAL - Review of Systems Review Of Systems: Comprehensive ROS is negative, except as noted in HPI. ED EXAM, GENERAL - Physical Exam Exam: See Below (see dictation) Course - Vital Signs Last Recorded V/S: Last Vital Signs Temp 97.1 F 12/29/20 10:28 Pulse 104 H 12/29/20 10:28 Resp 16 12/29/20 10:28 BP 138/78 12/29/20 10:28 Pulse Ox 9 L 12/29/20 10:28 - Orders/Labs/Meds Labs: Laboratory Tests 12/29/20 12/29/20 Range/Units 10:20 10:50 Influenza Type A RNA NEGATIVE (NEGATIVE) Influenza Type B RNA NEGATIVE (NEGATIVE) SARS-CoV-2 RNA (KARIS) NEGATIVE (NEGATIVE) Group A Strep (PCR) NOT DETECTED (NOT DETECT) Departure - Departure Time of Disposition: 11:40 Disposition: Home, Self-Care 01 Clinical Impression: Upper respiratory infection Qualifiers: URI type: unspecified URI Qualified Code(s): J06.9 - Acute upper respiratory infection, unspecified Pharyngitis Qualifiers: Pharyngitis/tonsillitis etiology: unspecified etiology Qualified Code(s): J02.9 - Acute pharyngitis, unspecified - Discharge Information Instructions: Upper Respiratory Infection, Adult, [id number], Pharyngitis, [id number] Referrals: Jagjit Zelaya MD [Primary Care Provider] - Forms: ED Department Discharge Additional Instructions: The following information is given to patients seen in the emergency department who are being discharged to home. This information is to outline your options for follow-up care. We provide all patients seen in our emergency department with a follow-up referral. The need for follow-up, as well as the timing and circumstances, are variable depending upon the specifics of your emergency department visit. If you don't have a primary care physician on staff, we will provide you with a referral. We always advise you to contact your personal physician following an emergency department visit to inform them of the circumstance of the visit and for follow-up with them and/or the need for any referrals to a consulting specialist. The emergency department will also refer you to a specialist when appropriate. This referral assures that you have the opportunity for follow-up care with a specialist. All of these measure are taken in an effort to provide you with optimal care, which includes your follow-up. Under all circumstances we always encourage you to contact your private physician who remains a resource for coordinating your care. When calling for follow-up care, please make the office aware that this follow-up is from your recent emergency room visit. If for any reason you are refused follow-up, please contact the [facility] Emergency Department at and asked to speak to the emergency department charge nurse. [facility] [address] [place] [id number] [facility] [address] [place] [id number] [facility] [address] [place] [address] 1. Use cough drops and/or other over the counter medications as needed for throat discomfort as discussed. Drink small but frequent sips of fluid to prevent dehydration. 2. You cause ylenol as directed for pain and discomfort. This is safe to use in . 3. Follow up with your science instructor or primary care provider as discussed. 4. Return to the ED as needed and as discussed. Sepsis Event Note (ED) - Focused Exam Vital Signs: Vital Signs Temp Pulse Resp BP Pulse Ox 12/29/20 10:28 97.1 F 104 H 16 138/78 9 L
[2020-12-29 11:36] LABS: CORONAVIRUS COVID-19 NAA NEGATIVE (NEGATIVE); INFLUENZA A NAA NEGATIVE (NEGATIVE); INFLUENZA B NAA NEGATIVE (NEGATIVE)
== END 2020-12-29 12:05 | disposition home or self-care (01) ==
LOC: MW.ED 10:03
DX: O99.513 Diseases of the respiratory system complicating pregnancy, third trimester (principal); J02.9 Acute pharyngitis, unspecified; Z20.822 Contact with and (suspected) exposure to COVID-19; Z3A.39 39 weeks gestation of pregnancy
CPT/HCPCS: 0240U; 87651; 99283; 99282

== ENCOUNTER 2021-01-12 08:29 | Inpatient (IN) | payer BC ==
[2021-01-12] MEDS ORDERED: Butorphanol 1 MG/ML SDV IVPUSH PRN (09:15)
[2021-01-12] MEDS ORDERED: Lidocaine 1% 50 ML MDV INJECT PRN (09:15)
[2021-01-12] MEDS ORDERED: Sodium Chloride 0.9% 10 ML SDV IV PRN (09:15)
[2021-01-12] MEDS ORDERED: Sodium Chloride 0.9% 2.5 ML Syringe FLUSH PRN (09:15)
[2021-01-12] MEDS ORDERED: Misoprostol 200 MCG Tab PO PRN (09:15)
[2021-01-12] MEDS ORDERED: Lactated Ringers 1,000 ML IV SCH (09:15)
[2021-01-12] MEDS ORDERED: Water For Irrigation,Sterile 1,000 ML Container IRR PRN (09:15)
[2021-01-12] MEDS ORDERED: Sodium Chloride 0.9% 10 ML Syringe FLUSH PRN (09:15)
[2021-01-12] MEDS ORDERED: Nalbuphine 10 MG/1 ML Vial IVPUSH PRN (09:15)
[2021-01-12] MEDS ORDERED: Tranexamic Acid 1,000 MG in Sodium Chloride 0.9% 100 ML IV PRN (09:15)
[2021-01-12] MEDS ORDERED: Ondansetron 4 MG/2 ML SDV IVPUSH PRN (09:15)
[2021-01-12] MEDS ORDERED: Oxytocin/0.9 % Sodium Chloride 30 UNIT/500 ML BAG IV SCH ×2 (09:15→09:30)
[2021-01-12] MEDS ORDERED: Carboprost Tromethamine 250 MCG/1 ML Amp IM PRN (09:15)
[2021-01-12] MEDS ORDERED: Methylergonovine 0.2 MG/1 ML Amp IM PRN (09:15)
[2021-01-12] MEDS ORDERED: Terbutaline 1 MG/ML SDV SUBCUT PRN (09:17)
[2021-01-12] MEDS ORDERED: Misoprostol 25 MCG (1/4 of 100 MCG) Tab VAG PRN (09:17)
[2021-01-12] MEDS ORDERED: Ibuprofen 400 MG Tab PO PRN (18:54)
[2021-01-12] MEDS ORDERED: Bisacodyl 10 MG Supp RECTAL PRN (18:54)
[2021-01-12] MEDS ORDERED: Lanolin 100% Cream 7 GM Tube TOP PRN (18:54)
[2021-01-12] MEDS ORDERED: Acetaminophen 500 MG Tab PO PRN ×2 (18:54)
[2021-01-12] MEDS ORDERED: Witch Hazel Medicated Pads 40/Jar TOP PRN (18:54)
[2021-01-12] MEDS ORDERED: Benzocaine/Menthol 20%-0.5% Spray 78 GM Cannister TOP PRN (18:54)
[2021-01-12] MEDS ORDERED: Docusate Sodium 100 MG Cap PO PRN (18:54)
[2021-01-12] MEDS: Ibuprofen 800 MG Tab PO PRN (19:49)
--- NOTE | 2021-01-12 22:09 | OR ---
SURGEON: Vini Brand MD DATE OF PROCEDURE: 01/12/2021 INDICATION FOR PROCEDURE: A 25-year-old G3, P 2-0-0-2, at 39 weeks and 2 days was admitted for elective induction of labor. The patient had an otherwise uncomplicated . She does have a history of hemorrhage with last delivery. She is GBS negative. The patient received one dose of Cytotec for induction of labor and progressed from 2 cm to 4 cm and began having regular and strong contractions. Artificial rupture of membrane was performed with clear fluid. She continued to make progress on her own and quickly became fully dilated with the urge to push. PREOPERATIVE DIAGNOSIS: Enrique intrauterine at 39 weeks and 2 days. POSTOPERATIVE DIAGNOSIS: Enrique intrauterine at 39 weeks and 2 days. PROCEDURES PERFORMED: Normal spontaneous vaginal delivery, repair of first-degree laceration. ANESTHESIA: Local. ESTIMATED BLOOD LOSS: 200 mL. FINDINGS: Viable male , scores 8 and 9. weight of 3180g. DESCRIPTION OF PROCEDURE: The patient pushed with contractions for 10 minutes with good descent. head delivered in occiput anterior position. We restituted ROT. Anterior shoulder was delivered easily followed by posterior shoulder and remaining body. No nuchal cord was noted. The baby was pink, crying vigorously, and moving all extremities immediately after delivery. The baby was placed on maternal chest and evaluated by awaiting nursery staff. The umbilical cord was clamped and cut after 60 seconds and no longer pulsating. The umbilical cord gases were obtained. The placenta was removed with gentle traction on the umbilical cord and fundal massage. It was examined and found to be intact with 3-vessel cord. Perineum was examined and she had superficial periurethral lacerations that were hemostatic, and a small first-degree laceration. 1% lidocaine with epi was used for local anesthesia and the perineal laceration was repaired with 0 Vicryl in the usual fashion. The uterus was firm with fundal massage, and the bleeding was light. The patient tolerated the procedure well, was given care instructions. SAFIA SILVERMAN /[id number] MTDAngel
--- NOTE | 2021-01-13 08:47 | PCM.PNPP ---
- General Info Date of Service: 01/13/21 Subjective Update: patient seen at bedside , she denies any complains , ambulating , voiding and , normal lochia Functional Status: Reports: Pain Controlled, Tolerating Diet, Ambulating, Urinating - Review of Systems General: Reports: No Symptoms HEENT: Reports: No Symptoms Pulmonary: Reports: No Symptoms Cardiovascular: Reports: No Symptoms Gastrointestinal: Reports: No Symptoms Genitourinary: Reports: No Symptoms Musculoskeletal: Reports: No Symptoms Skin: Reports: No Symptoms Neurological: Reports: No Symptoms Psychiatric: Reports: No Symptoms - General Info Date of Service: 01/13/21 - Patient Data Vital Signs - Most Recent: Last Vital Signs Temp 36.2 C 01/13/21 04:00 Pulse 71 01/13/21 04:00 Resp 16 01/13/21 04:00 BP 104/61 01/13/21 04:00 Pulse Ox 95 01/13/21 04:00 Weight - Most Recent: 78.925 kg Lab Results - Last 24 Hours: Laboratory Results - last 24 hr 01/12/21 01/12/21 01/12/21 Range/Units 09:48 10:09 17:51 WBC 8.57 (4.0-11.0) K/uL RBC 5.01 (4.30-5.90) M/uL Hgb 12.8 (12.0-16.0) g/dL Hct 39.9 (36.0-46.0) % MCV 79.6 L (80.0-98.0) fL MCH 25.5 L (27.0-32.0) pg MCHC 32.1 (31.0-37.0) g/dL RDW Std Deviation 67.9 H (28.0-62.0) fl RDW Coeff of Andrea 25 H (11.0-15.0) % Plt Count 312 (150-400) K/uL MPV 10.60 (7.40-12.00) fL Nucleated RBC % 0.0 /100WBC Nucleated RBCs # 0 K/uL Cord ABG pH SLITTING MACHINE OPERATOR HELPER Cord ABG Base Excess SLITTING MACHINE OPERATOR HELPER Cord VBG pH 7.377 (7.25-7.45) Cord VBG Base Excess -1 H (-10--2) Blood Type A NEGATIVE Antibody Screen NEGATIVE Screen (NEGATIVE) RhIG Candidate? Rhogam Indicated 01/12/21 01/13/21 Range/Units 19:07 06:40 WBC (4.0-11.0) K/uL RBC (4.30-5.90) M/uL Hgb 11.7 L (12.0-16.0) g/dL Hct 37.2 (36.0-46.0) % MCV (80.0-98.0) fL MCH (27.0-32.0) pg MCHC (31.0-37.0) g/dL RDW Std Deviation (28.0-62.0) fl RDW Coeff of Andrea (11.0-15.0) % Plt Count (150-400) K/uL MPV (7.40-12.00) fL Nucleated RBC % /100WBC Nucleated RBCs # K/uL Cord ABG pH Cord ABG Base Excess Cord VBG pH (7.25-7.45) Cord VBG Base Excess (-10--2) Blood Type Antibody Screen Screen NEGATIVE (NEGATIVE) RhIG Candidate? YES Rhogam Indicated YES, BABY RH POS H Med Orders - Current: Current Medications Acetaminophen (Tylenol Extra Strength) 500 mg PO Q4H PRN PRN Reason: Pain Acetaminophen (Tylenol Extra Strength) 1,000 mg PO Q4H PRN PRN Reason: Pain Last Admin: 01/13/21 02:17 Dose: 1,000 mg Documented by: Benzocaine/Menthol (Dermoplast Pain Relief 20%-0.5% [place]) 78 gm TOP ASDIRECTED PRN PRN Reason: Perineal Comfort Measure Last Admin: 01/12/21 19:49 Dose: 1 can Documented by: Bisacodyl (Dulcolax) 10 mg RECTAL ONETIME PRN PRN Reason: Constipation Butorphanol Tartrate (Stadol) 1 mg IVPUSH Q1H PRN PRN Reason: Pain Last Admin: 01/12/21 17:00 Dose: 1 mg Documented by: Carboprost Tromethamine (Hemabate Ds) 250 mcg IM ASDIRECTED PRN PRN Reason: Post Hemorrhage Docusate Sodium (Colace) 100 mg PO BID PRN PRN Reason: Constipation Emollient Ointment (Lansinoh Hpa) 0 gm TOP ASDIRECTED PRN PRN Reason: Sore Nipples Oxytocin/Sodium Chloride (Oxytocin 30 Unit/500 Ml-Ns) 30 unit in 500 mls @ 999 mls/hr IV TITRATE ANTOINE Last Admin: 01/12/21 17:53 Dose: 999 mls/hr Documented by: Tranexamic Acid 1,000 mg/ (Sodium Chloride) 110 mls @ 660 mls/hr IV ONETIME PRN PRN Reason: Bleeding Lactated Ringer's (Ringers, Lactated) 1,000 mls @ 150 mls/hr IV ASDIRECTED ANTOINE Last Admin: 01/12/21 17:01 Dose: 150 mls/hr Documented by: Oxytocin/Sodium Chloride (Oxytocin 30 Unit/500 Ml-Ns) 30 unit in 500 mls @ 2 mls/hr IV TITRATE [facility]; Protocol Ibuprofen (Motrin) 400 mg PO Q4H PRN PRN Reason: Pain Ibuprofen (Motrin) 800 mg PO Q6H PRN PRN Reason: Pain Last Admin: 01/12/21 19:49 Dose: 800 mg Documented by: Lidocaine HCl (Xylocaine 1%) 50 ml INJECT ONETIME PRN PRN Reason: Laceration repair Last Admin: 01/12/21 18:25 Dose: 50 ml Documented by: Methylergonovine Maleate (Methergine) 0.2 mg IM ASDIRECTED PRN PRN Reason: Post Hemorrhage Misoprostol (Cytotec) 200 mcg PO ONETIME PRN PRN Reason: Post Hemorrhage Misoprostol (Cytotec) 25 mcg VAG Q4H PRN PRN Reason: Cervical Ripening Last Admin: 01/12/21 10:55 Dose: 25 mcg Documented by: Nalbuphine HCl (Nubain) 10 mg IVPUSH Q1H PRN PRN Reason: Pain (severe 7-10) Ondansetron HCl (Zofran) 4 mg IVPUSH Q6H PRN PRN Reason: Nausea/Vomiting Sodium Chloride (Saline Flush) 10 ml FLUSH ASDIRECTED PRN PRN Reason: Keep Vein Open Sodium Chloride (Saline Flush) 2.5 ml FLUSH ASDIRECTED PRN PRN Reason: Keep Vein Open Sodium Chloride (Normal Saline) 10 ml IV ASDIRECTED PRN PRN Reason: IV Use Sterile Water (Sterile Water For Irrigation) 1,000 ml IRR ASDIRECTED PRN PRN Reason: delivery Terbutaline Sulfate (Brethine) 0.25 mg SUBCUT ASDIRECTED PRN PRN Reason: Tacysystole Trace Mann (Tucks) 1 pad TOP ASDIRECTED PRN PRN Reason: comfort care Last Admin: 01/12/21 19:49 Dose: 1 tub Documented by: - Interaction Support Person: - Recovery Exam Fundal Tone: Firm Fundal Level: 1 Fingerbreadths Below Umbilicus Fundal Placement: Midline Lochia Amount: Small Lochia Color: Rubra/Red Perineum Description: Other (see below) Other Perinuem Description: 1st degree laceration Episiotomy/Laceration: Approximated Bladder Status: Voiding Urinary Elimination: Voided - Exam General: Alert HEENT: Pupils Equal Neck: Supple Lungs: Clear to Auscultation Cardiovascular: Regular Rate, Regular Rhythm GI/Abdominal Exam: Normal Bowel Sounds Extremities: Normal Inspection Neurological: No New Focal Deficit - Problem List & Annotations (1) Vaginal delivery SNOMED Code(s): 353339453 Code(s): O80 - ENCOUNTER FOR FULL-TERM UNCOMPLICATED DELIVERY Status: Acute Current Visit: Yes - Problem List Review Problem List Initiated/Reviewed/Updated: Yes - My Orders Last 24 Hours: My Active Orders 01/12/21 09:15 May Shower [RC] ASDIRECTED Up ad Duyen [RC] ASDIRECTED Vital Signs [RC] PER UNIT ROUTINE Butorphanol [Stadol] 1 mg IVPUSH Q1H PRN Carboprost Tromethamine [Hemabate DS] 250 mcg IM ASDIRECTED PRN Lactated Ringers [Ringers, Lactated] 1,000 ml IV ASDIRECTED Lidocaine 1% [Xylocaine 1%] 50 ml INJECT ONETIME PRN Methylergonovine [Methergine] 0.2 mg IM ASDIRECTED PRN Nalbuphine [Nubain] 10 mg IVPUSH Q1H PRN Ondansetron [Zofran] 4 mg IVPUSH Q6H PRN Oxytocin/0.9 % Sodium Chloride [Oxytocin 30 Unit/500 ML-NS] 30 unit in 500 ml IV TITRATE Sodium Chloride 0.9% [Normal Saline] 10 ml IV ASDIRECTED PRN Sodium Chloride 0.9% [Saline Flush] 10 ml FLUSH ASDIRECTED PRN Sodium Chloride 0.9% [Saline Flush] 2.5 ml FLUSH ASDIRECTED PRN Tranexamic Acid [Cyklokapron] 1,000 mg Sodium Chloride 0.9% [Normal Saline] 100 ml IV ONETIME Water For Irrigation,Sterile [Sterile Water for Irrigation] 1,000 ml IRR ASDIRECTED PRN miSOPROStoL [Cytotec] 200 mcg PO ONETIME PRN Scalp Electrode [WOMSER] Per Unit Routine Peripheral IV Insertion Adult [OM.PC] Routine Resuscitation Status Routine 01/12/21 09:17 Oxygen Therapy [RC] ASDIRECTED Vital Signs [RC] PER UNIT ROUTINE Terbutaline [Brethine] 0.25 mg SUBCUT ASDIRECTED PRN miSOPROStoL [Cytotec] 25 mcg VAG Q4H PRN 01/12/21 09:30 Oxytocin/0.9 % Sodium Chloride [Oxytocin 30 Unit/500 ML-NS] 30 unit in 500 ml IV TITRATE Medication Administration Instruction [OM.PC] Q3H 01/12/21 10:09 RPR (SYPHILIS SERO) W/ RFLX [REF] Routine - Assessment Assessment:: 25yo s/p PPD1 , normal lochia , Bonding with baby Rubella immune - Plan Plan:: Routine care Discharge home today Pain control as needed
[2021-01-13] MEDS: Ibuprofen 800 MG Tab PO PRN (14:30)
== END 2021-01-13 21:17 | disposition home or self-care (01) | DRG 560 ==
LOC: MW.OB 08:29 → OBSVTOIN 17:51 → MW.OB 17:51
PROVIDERS: ADMIT Obstetrics & Gynecology; ATTEND Obstetrics & Gynecology
PROC: 10E0XZZ Delivery of Products of Conception, External Approach (ICD-10-PCS; principal; 2021-01-12)
PROC: 10907ZC Drainage of Amniotic Fluid, Therapeutic from Products of Conception, Via Natural or Artificial Opening (ICD-10-PCS; 2021-01-12)
PROC: 0HQ9XZZ Repair Perineum Skin, External Approach (ICD-10-PCS; 2021-01-12)
PROC: 3E0P7VZ Introduction of Hormone into Female Reproductive, Via Natural or Artificial Opening (ICD-10-PCS; 2021-01-12)
PROC: 4A0HXCZ Measurement of Products of Conception, Cardiac Rate, External Approach (ICD-10-PCS; 2021-01-12)
DX: O99.02 Anemia complicating childbirth (principal); O70.0 First degree perineal laceration during delivery; Z37.0 Single live birth; Z3A.39 39 weeks gestation of pregnancy; D64.9 Anemia, unspecified; O22.43 Hemorrhoids in pregnancy, third trimester
CPT/HCPCS: 36415; 82803; 85014; 85018; 85027; 85460; 86592; 86850; 86900; 86901; A9270-GY; J0595; J2001; J2590; J2792; J7120

== ENCOUNTER 2021-02-16 05:11 | Emergency (ER) | payer BC ==
[2021-02-16] MEDS ORDERED: Sodium Chloride 0.9% 10 ML Syringe FLUSH PRN (05:27)
[2021-02-16] MEDS ORDERED: Sodium Chloride 0.9% 2.5 ML Syringe FLUSH PRN (05:27)
[2021-02-16] MEDS ORDERED: Ondansetron 4 MG/2 ML SDV IVPUSH ONE ×2 (05:29→07:20)
--- NOTE | 2021-02-16 05:30 | EDM.PDOC ---
<Darryl Dai - Last Filed: 02/16/21 07:56> ED HPI GENERAL MEDICAL PROBLEM - General Chief Complaint: Flank Pain Stated Complaint: SICK Time Seen by Provider: 02/16/21 06:00 Source of Information: Reports: Patient History Limitations: Reports: No Limitations upper abdomen\ back Pain Score (Numeric/FACES): 9 - Related Data Allergies Allergy/AdvReac Type Severity Reaction Status Date / Time No Known Allergies Allergy Verified 02/16/21 05:23 Home Meds: Home Meds Mv-Mn/Iron/FA/Herbal/Digestive [ One Tablet] 1 tab PO DAILY 06/17/20 [History] Course - Re-Assessments/Exams Free Text/Narrative Re-Assessment/Exam: 02/16/21 07:43 Patient's ultrasound imaging is remarkable for concern for choledocholithiasis. She does have elevated pancreatic enzymes which could be indicative of choledocholithiasis. Spoke to [facility] who agrees to accept patient for transfer but notes that they only have MRCP capabilities and do not have GI coverage or ERCP availability. Will reach out to [facility] for potential transfer. 02/16/21 07:56 [facility] agrees to accept for direct admit. Patient agreeable to plan. She will go by BLS. Patient is being transferred because we do not offer MRCP, ERCP, or GI specialty coverage at our institution. Departure - Departure Time of Disposition: 07:57 Disposition: DC/Tfer to Acute Hospital 02 Condition: Good Clinical Impression: Choledocholithiasis - Discharge Information Referrals: PCP,None [Primary Care Provider] - Forms: ED Department Discharge <Jorge Degroot - Last Filed: 02/16/21 18:43> ED HPI GENERAL MEDICAL PROBLEM - History of Present Illness INITIAL COMMENTS - FREE TEXT/NARRATIVE: History of present illness: [] Is 1 month patient who is breast-feeding woke up with sudden pain in her epigastrium radiating to her back this morning. It hurts to breathe. Its severe and sharp. She has nausea but no vomiting. She does not have fever chills or cough. She is got a says she is not as active as she had been before that nobody has thromboembolic disease in her family. She does not have any leg swelling. Review of systems: As per history of present illness and below otherwise all systems reviewed and negative. Past medical history: As per history of present illness and as reviewed below otherwise noncontributory. Surgical history: As per history of present illness and as reviewed below otherwise noncontributory. Social history: No reported history of drug or alcohol abuse. Family history: As per history of present illness and as reviewed below otherwise noncontributory. Physical exam: Constitutional - well developed, well-nourished and in no acute distress HEENT - normocephalic, no evidence of trauma - external nose and mouth normal - no mass in neck and no JVD - mucosae moist EYES - full EOM, PERRL, no icterus - no evidence of inflammation, injection, or drainage Respiratory - no respiratory distress, equal bilateral expansion, lungs clear to auscultation and no abnormal lung sounds Cardiovascular - Regular Rhythm with S1 and S2 appreciated and no murmur, gallop or rub. GI -tender epigastrium and under the costal margins. She winces a little more when I push on to the right. And in the center of the epigastrium. Abdomen soft without distension or organomegaly - normal bowel sounds - no guard or rebound Musculoskeletal no gross deformity of long bones or joints - no tenderness, swelling or edema Neurologic - Alert and oriented times four - CN II-XII grossly intact - motor sensory and coordination symmetrically normal Psychiatric - appropriate mood and affect with normal thought content Hematologic - No petechiae or purpura - mucosa appropriate color and sclera not pale - normal nail bed color and refill Integument - no rash or evidence of trauma - normal turgor Diagnostics: [] Therapeutics: [] Impression: [] Plan: [] Definitive disposition and diagnosis as appropriate pending reevaluation and review of above. Past Medical History - Past Health History Medical/Surgical History: Denies Medical/Surgical History HEENT History: Reports: None Cardiovascular History: Reports: None Respiratory History: Reports: None Gastrointestinal History: Reports: None Genitourinary History: Reports: None SOCIAL INSURANCE ADVISER History: Reports: Musculoskeletal History: Reports: None Neurological History: Reports: None Psychiatric History: Reports: None Endocrine/Metabolic History: Reports: None Insulin Pump Model and Stamps Or Coins Salesperson: N/A Hematologic History: Reports: None Immunologic History: Reports: None Oncologic (Cancer) History: Reports: None Dermatologic History: Reports: None - Infectious Disease History Infectious Disease History: Reports: Chicken Pox - Past Surgical History GI Surgical History: Reports: Appendectomy Social & Family History - Family History Family Medical History: No Pertinent Family History OBGYN: Reports: Endocrine/Metabolic: Reports: Diabetes, type II - Caffeine Use Caffeine Use: Reports: Soda ED ROS GENERAL - Review of Systems Review Of Systems: Comprehensive ROS is negative, except as noted in HPI. ED EXAM, GENERAL - Physical Exam Exam: See Below Free Text/Narrative:: My physical exam is in the HPI Course - Vital Signs Text/Narrative:: Addendum 02/16/2021 at 6:42 PM At the end of my shift I turned the patient over to my partner. The ultrasound report was returned showing cholelithiasis. Because of the potential for common duct stone causing gallstone pancreatitis the patient was transferred to the nearest facility with the capability to manage that condition. Last Recorded V/S: Last Vital Signs Temp 36.2 C 02/16/21 07:31 Pulse 69 02/16/21 09:06 Resp 16 02/16/21 09:06 BP 104/73 02/16/21 09:06 Pulse Ox 97 02/16/21 09:06 - Orders/Labs/Meds Orders: Active Orders 24 hr Category Date Time Status Saline Lock Insert [OM.PC] Stat Oth 02/16/21 05:28 Ordered Labs: Laboratory Tests 02/16/21 02/16/21 02/16/21 Range/Units 05:30 05:30 05:35 WBC 10.96 (4.0-11.0) K/uL RBC 5.15 (4.30-5.90) M/uL Hgb 13.6 (12.0-16.0) g/dL Hct 41.7 (36.0-46.0) % MCV 81.0 (80.0-98.0) fL MCH 26.4 L (27.0-32.0) pg MCHC 32.6 (31.0-37.0) g/dL RDW Std Deviation 64.6 H (28.0-62.0) fl RDW Coeff of Andrea 22 H (11.0-15.0) % Plt Count 319 (150-400) K/uL MPV 9.50 (7.40-12.00) fL Neut % (Auto) 73.6 (48.0-80.0) % Lymph % (Auto) 13.6 L (16.0-40.0) % [place] % (Auto) 10.9 (0.0-15.0) % Eos % (Auto) 1.4 (0.0-7.0) % Baso % (Auto) 0.5 (0.0-1.5) % Neut # (Auto) 8.1 H (1.4-5.7) K/uL Lymph # (Auto) 1.5 (0.6-2.4) K/uL [place] # (Auto) 1.2 H (0.0-0.8) K/uL Eos # (Auto) 0.2 (0.0-0.7) K/uL Baso # (Auto) 0.1 (0.0-0.1) K/uL Nucleated RBC % 0.0 /100WBC Nucleated RBCs # 0 K/uL Sodium 140 (136-145) mmol/L Potassium 4.0 (3.5-5.1) mmol/L Chloride 104 (98-107) mmol/L Carbon Dioxide 25.2 (21.0-32.0) mmol/L BUN 15 (7.0-18.0) mg/dL Creatinine 1.0 (0.6-1.0) mg/dL Est Cr Clr Drug Dosing 76.71 mL/min Estimated GFR (MDRD) > 60.0 ml/min Glucose 104 (74-106) mg/dL Calcium 8.8 (8.5-10.1) mg/dL Total Bilirubin 0.4 (0.2-1.0) mg/dL AST 79 H (15-37) IU/L ALT 55 (14-63) IU/L Alkaline Phosphatase 119 H (46-116) U/L Total Protein 8.2 (6.4-8.2) g/dL Albumin 3.6 (3.4-5.0) g/dL Globulin 4.6 H (2.6-4.0) g/dL Albumin/Globulin Ratio 0.8 L (0.9-1.6) Lipase 1057 H (73-393) U/L Urine Color YELLOW Urine Appearance CLEAR Urine pH 5.5 (5.0-8.0) Ur Specific Waves >= 1.030 (1.001-1.035) Urine Protein NEGATIVE (NEGATIVE) mg/dL Urine Glucose (UA) NEGATIVE (NEGATIVE) mg/dL Urine Ketones NEGATIVE (NEGATIVE) mg/dL Urine Occult Blood TRACE-INTACT H (NEGATIVE) Urine Nitrite NEGATIVE (NEGATIVE) Urine Bilirubin NEGATIVE (NEGATIVE) Urine Urobilinogen 1.0 (<2.0) EU/dL Ur Leukocyte Esterase NEGATIVE (NEGATIVE) Urine RBC 0-1 (0-2/HPF) Urine WBC 1-3 (0-5/HPF) Ur Epithelial Cells FEW (NONE-FEW) Urine Bacteria 1+ H (NEGATIVE) Urine Mucus LIGHT (NONE-MOD) Meds: Medications Discontinued Medications Generic Name Dose Route Start Last Admin Trade Name Freq PRN Reason Stop Dose Admin Al Hydroxide/Mg Hydroxide 30 ml 02/16/21 05:58 02/16/21 06:05 Aluminum Hydroxide/Magnesium Hydroxide/Simethicone Susp 30 Ml Cup PO 02/16/21 05:59 30 ml ONETIME ONE Administration Hydromorphone HCl 1 mg 02/16/21 08:24 02/16/21 08:41 Hydromorphone 1 Mg/Ml Syringe IVPUSH 02/16/21 08:25 1 mg ONETIME ONE Administration Pantoprazole Sodium 40 mg/ 10 mls @ 300 mls/hr 02/16/21 05:57 02/16/21 06:04 Sodium Chloride IV 02/16/21 05:58 300 mls/hr NOW ONE Administration Morphine Sulfate 4 mg 02/16/21 06:57 02/16/21 07:09 Morphine 4 Mg/Ml Syringe IVPUSH 02/16/21 06:58 4 mg ONETIME ONE Administration Ondansetron HCl 4 mg 02/16/21 05:29 02/16/21 05:31 Ondansetron 4 Mg/2 Ml Sdv IVPUSH 02/16/21 05:30 4 mg ONETIME ONE Administration Ondansetron HCl 4 mg 02/16/21 07:20 02/16/21 07:29 Ondansetron 4 Mg/2 Ml Sdv IVPUSH 02/16/21 07:21 4 mg ONETIME ONE Administration Sodium Chloride 10 ml 02/16/21 05:27 02/16/21 05:33 Sodium Chloride 0.9% 10 Ml Syringe FLUSH 10 ml ASDIRECTED PRN Administration Keep Vein Open Sodium Chloride 2.5 ml 02/16/21 05:27 02/16/21 05:32 Sodium Chloride 0.9% 2.5 Ml Syringe FLUSH 2.5 ml ASDIRECTED PRN Administration Keep Vein Open Sepsis Event Note (ED) - Focused Exam Vital Signs: Vital Signs Temp Pulse Resp BP Pulse Ox 02/16/21 09:06 69 16 104/73 97 02/16/21 08:22 70 17 126/69 98 02/16/21 07:31 36.2 C 74 17 114/71 97 - My Orders Last 24 Hours: My Active Orders 02/16/21 05:28 Saline Lock Insert [OM.PC] Stat - Assessment/Plan Last 24 Hours: My Active Orders 02/16/21 05:28 Saline Lock Insert [OM.PC] Stat
[2021-02-16] MEDS ORDERED: Pantoprazole 40 MG in Sodium Chloride 0.9% 10 ML IV ONE (05:57)
[2021-02-16] MEDS ORDERED: Aluminum Hydroxide/Magnesium Hydroxide/Simethicone Susp 30 ML Cup PO ONE (05:58)
[2021-02-16 06:06] LABS: BLOOD UREA NITROGEN,BUN 15 mg/dL (7.0-18.0); CARBON DIOXIDE,CO2 25.2 mmol/L (21.0-32.0); CHLORIDE,CL 104 mmol/L (98-107); GLUCOSE RANDOM 104 mg/dL (74-106); LIPASE 1057 U/L (73-393); SODIUM,NA 140 mmol/L (136-145)
--- NOTE | 2021-02-16 06:08 | CR ---
Indication: Pain with respiration Technique: Chest 1 view Comparison: Chest x-ray 06/17/2020 Findings/Impression: Cardiovascular and mediastinum: Heart size and vasculature are normal in caliber and appearance. Lungs and pleural space: Lungs are clear. No sign of infiltrate or mass. No sign of pleural effusion. No pneumothorax. Bones and soft tissues: No acute findings. Dictated by Jonathan Silva MD @ Feb 16 2021 6:06AM Signed by Dr. Jonathan Silva @ Feb 16 2021 6:07AM
[2021-02-16] MEDS ORDERED: Morphine 4 MG/ML Syringe IVPUSH ONE (06:57)
--- NOTE | 2021-02-16 07:10 | US ---
Indication: Right upper quadrant abdomen pain TECHNIQUE: Ultrasound abdomen limited. Sonographic images of the right upper quadrant were obtained using dunlap-scale and color Doppler images. Comparison: CT abdomen and pelvis February 04, 2020 and FINDINGS: Liver: Normal in size and echotexture. No masses. No intrahepatic biliary dilatation. Gallbladder: There are dependent calculi within the gallbladder. Normal wall thickness. No pericholecystic fluid. There is no sonographic tenderness. Common bile duct: 6 mm. There is questionable radiopaque calculus within the common duct. Pancreas: Normal. Impression: Cholelithiasis with questionable choledocholithiasis. No evidence of acute cholecystitis. Follow-up with MRCP may be useful for improved characterization. Dictated by Martin Sam MD @ Feb 16 2021 7:03AM Signed by Dr. Martin aSm @ Feb 16 2021 7:09AM
[2021-02-16] MEDS ORDERED: HYDROmorphone 1 MG/ML Syringe IVPUSH ONE (08:24)
== END 2021-02-16 09:15 ==
LOC: MW.ED 05:11
DX: O99.63 Diseases of the digestive system complicating the puerperium (principal); K80.50 Calculus of bile duct without cholangitis or cholecystitis without obstruction
CPT/HCPCS: 36415; 71045; 76705; 80053; 81001; 83690; 85025; 96374; 96375; 96376; 99285; A9270; C9113; J1170; J2270; J2405; 99284

== ENCOUNTER 2021-02-22 17:31 | Emergency (ER) | payer BC ==
--- NOTE | 2021-02-22 17:46 | EDM.PDOC ---
<Delmar Sepulveda - Last Filed: 02/22/21 19:20> ED HPI GENERAL MEDICAL PROBLEM - General Chief Complaint: Chest Pain Stated Complaint: RECENT SURGERY, CHEST PAIN Time Seen by Provider: 02/22/21 17:44 Source of Information: Reports: Patient History Limitations: Reports: No Limitations - History of Present Illness INITIAL COMMENTS - FREE TEXT/NARRATIVE: Patient is a 25-year-old female who presents today for chest pain. Patient recently had a cholecystectomy done on Saturday and states since that time she has been having some upper chest pain and shortness of breath. Patient that she is also has increased shortness of breath with ambulation as well. Patient also reports now some diffuse abdominal pain mostly on the right side. Patient states the surgical scars are healing well. Patient denies any fevers or chills or urinary symptoms. Chest Pain Score (Numeric/FACES): 7 - Related Data Allergies Allergy/AdvReac Type Severity Reaction Status Date / Time No Known Allergies Allergy Verified 02/22/21 17:35 Home Meds: Home Meds Ibuprofen 600 mg PO Q6HR PRN #30 tablet 02/22/21 [Rx] Ondansetron [Zofran ODT] 4 mg PO Q6H PRN #12 tab.dis 02/22/21 [Rx] Past Medical History - Past Health History Medical/Surgical History: Denies Medical/Surgical History HEENT History: Reports: None Cardiovascular History: Reports: None Respiratory History: Reports: None Gastrointestinal History: Reports: None Genitourinary History: Reports: None COMPUTER NETWORK SPECIALIST History: Reports: Musculoskeletal History: Reports: None Neurological History: Reports: None Psychiatric History: Reports: None Endocrine/Metabolic History: Reports: None Insulin Pump Model and Bpm Developer: N/A Hematologic History: Reports: None Immunologic History: Reports: None Oncologic (Cancer) History: Reports: None Dermatologic History: Reports: None - Infectious Disease History Infectious Disease History: Reports: Chicken Pox - Past Surgical History Head Surgeries/Procedures: Reports: None GI Surgical History: Reports: Appendectomy, Cholecystectomy Female Surgical History: Reports: None Social & Family History - Family History Family Medical History: No Pertinent Family History OBGYN: Reports: Endocrine/Metabolic: Reports: Diabetes, type II - Tobacco Use Tobacco Use Status *Q: Never Tobacco User - Caffeine Use Caffeine Use: Reports: None - Recreational Drug Use Recreational Drug Use: No ED ROS GENERAL - Review of Systems Review Of Systems: See Below Constitutional: Reports: No Symptoms HEENT: Reports: No Symptoms Respiratory: Reports: No Symptoms Cardiovascular: Reports: Chest Pain Endocrine: Reports: No Symptoms GI/Abdominal: Reports: Abdominal Pain : Reports: No Symptoms Musculoskeletal: Reports: No Symptoms Skin: Reports: No Symptoms Neurological: Reports: No Symptoms Psychiatric: Reports: No Symptoms Hematologic/Lymphatic: Reports: No Symptoms Immunologic: Reports: No Symptoms ED EXAM, GENERAL - Physical Exam Exam: See Below Exam Limited By: No Limitations General Appearance: Alert, WD/WN, No Apparent Distress Eye Exam: Bilateral Eye: EOMI, PERRL Respiratory/Chest: No Respiratory Distress, Lungs Clear, Normal Breath Sounds Cardiovascular: Normal Peripheral Pulses, Regular Rate, Rhythm GI/Abdominal: Normal Bowel Sounds, Tender Extremities: Normal Inspection Neurological: Alert, Oriented, CN II-XII Intact #1 Interpretation EKG Date: 02/22/21 Time: 17:39 Rhythm: NSR Rate (Beats/Min): 91 ST-T: Normal Course - Re-Assessments/Exams Free Text/Narrative Re-Assessment/Exam: 02/22/21 19:20 Patient be signed out to oncoming attending patient is pending CT PE and abdomen pelvis. Departure - Departure Time of Disposition: 19:20 Disposition: Home, Self-Care 01 Condition: Good Clinical Impression: Status post cholecystectomy Chest pain Qualifiers: Chest pain type: other chest pain Qualified Code(s): R07.89 - Other chest pain; R07.8 - Other chest pain Abdominal pain Qualifiers: Abdominal location: epigastric Qualified Code(s): R10.13 - Epigastric pain Instructions: Nonspecific Chest Pain, Adult, Abdominal Pain, Adult, [id number] Referrals: PCP,None [Primary Care Provider] - Forms: ED Department Discharge Additional Instructions: You have been seen and evaluated in the ER today secondary to chest pain shortness of breath and abdominal discomfort after your cholecystectomy. The work-up that was performed in the ER did not reveal any emergent causes that would necessitate hospital admission at this time. The CT scan of your abdomen and pelvis did not reveal any evidence of abscess or infection or obstruction. The CT scan of your chest did not reveal any abnormalities in your lungs or chest. In particular there is no evidence of a pulmonary embolism, fluid, pneumonia. You will be discharged home with a prescription for ibuprofen and Zofran to assist you with nausea and pain. Please call your surgeon in the morning for further instructions and reevaluation. Please return the ED if you start developing any new or concerning symptoms. The following information is given to patients seen in the emergency department who are being discharged to home. This information is to outline your options for follow-up care. We provide all patients seen in our emergency department with a follow-up referral. The need for follow-up, as well as the timing and circumstances, are variable depending upon the specifics of your emergency department visit. If you don't have a primary care physician on staff, we will provide you with a referral. We always advise you to contact your personal physician following an emergency department visit to inform them of the circumstance of the visit and for follow-up with them and/or the need for any referrals to a consulting specialist. The emergency department will also refer you to a specialist when appropriate. This referral assures that you have the opportunity for follow-up care with a specialist. All of these measure are taken in an effort to provide you with optimal care, which includes your follow-up. Under all circumstances we always encourage you to contact your private physician who remains a resource for coordinating your care. When calling for follow-up care, please make the office aware that this follow-up is from your recent emergency room visit. If for any reason you are refused follow-up, please contact the [facility] Emergency Department at and asked to speak to the emergency department charge nurse. [facility] - Primary Care [address] [place] [address] [id number] [address] [address] Sepsis Event Note (ED) - Evaluation Sepsis Screening Result: No Definite Risk - Assessment/Plan Plan: Patient is a 25-year-old female who presents today for chest pain shortness of breath and abdominal pain. Patient recently had a surgery last Saturday. There is some concern for possible pulmonary emboli and possible postsurgical complications. Will likely obtain CT to rule out PE and also image the abdomen as well will obtain labs and EKG. <Corey Duran - Last Filed: 02/22/21 23:32> ED HPI GENERAL MEDICAL PROBLEM - History of Present Illness INITIAL COMMENTS - FREE TEXT/NARRATIVE: 11:26 PM: Patient has been seen and evaluated by me. Signout received at 7 PM with report of patient complaining of upper chest pain and shortness of breath and she is currently status post cholecystectomy approximately 5 days ago. Concern regarding possible PE so CT angiogram of the chest was ordered. Patient CT scan angiogram is negative for PE or other pulmonary pathology. Patient also had a CT scan of the abdomen pelvis secondary to complaints of abdominal discomfort. Patient CT scan of her abdomen pelvis shows some inflammatory changes around the gallbladder consistent with postoperative changes. Patient has no other evidence of acute intra-abdominal pathology. Patient's repeat abdominal exam multiple times in the ED revealed a nonsurgical abdominal exam. Patient abdomen was soft, nondistended, no rebound or guarding, no psoas or obturator signs, patient does have some tenderness palpation over midepigastric region. Patient has been given adequate analgesia here in the ED and feels very comfortable with the plan to be discharged home. Patient is tolerating liquids in the ED after the CT report was obtained. Patient will be instructed to call her surgeon in the morning for further instructions and further evaluation. Reassessment at the time of disposition demonstrates that the patient is in no acute distress. The patient has remained stable throughout the entire ED visit and is without objective evidence for acute process requiring urgent intervent ion or hospitalization. The patient is stable for discharge, counseling is provided as documented above, discussed symptomatic treatment and specific conditions for return. I have spoken with the patient/caregiver and discussed todays findings, in addition to providing specific details for the plan of care. Questions are answered and there is agreement with the plan. Patient be discharged home with a prescription for ibuprofen and Zofran to assist her with her discomfort. EKG #2 performed at 9:23 PM: EKG: As interpreted by ER physician: Roger: Nonspecific ST-T wave abnormalities Normal axis No evidence of ST elevation NE Normal sinus tachycardia heart rate of 104 Course - Vital Signs Last Recorded V/S: Last Vital Signs Temp 97.6 F 02/22/21 17:36 Pulse 78 02/22/21 22:20 Resp 16 02/22/21 22:20 BP 114/84 04/14/21 22:20 Pulse Ox 97 02/22/21 22:20 - Orders/Labs/Meds Orders: Active Orders 24 hr Category Date Time Status EKG Documentation Completion [RC] STAT Care 02/22/21 17:39 Active HYDROmorphone [Dilaudid] Med 02/22/21 23:25 Once 1 mg IVPUSH ONETIME ONE Ketorolac [Toradol] Med 02/22/21 23:25 Stat 15 mg IVPUSH Q6H STA Labs: Laboratory Tests 02/22/21 02/22/21 02/22/21 Range/Units 17:45 17:45 18:20 WBC 9.39 (4.0-11.0) K/uL RBC 5.29 (4.30-5.90) M/uL Hgb 14.4 (12.0-16.0) g/dL Hct 43.2 (36.0-46.0) % MCV 81.7 (80.0-98.0) fL MCH 27.2 (27.0-32.0) pg MCHC 33.3 (31.0-37.0) g/dL RDW Std Deviation 63.9 H (28.0-62.0) fl RDW Coeff of Andrea 22 H (11.0-15.0) % Plt Count 337 (150-400) K/uL MPV 9.90 (7.40-12.00) fL Neut % (Auto) 62.1 (48.0-80.0) % Lymph % (Auto) 20.9 (16.0-40.0) % [place] % (Auto) 10.4 (0.0-15.0) % Eos % (Auto) 5.9 (0.0-7.0) % Baso % (Auto) 0.7 (0.0-1.5) % Neut # (Auto) 5.8 H (1.4-5.7) K/uL Lymph # (Auto) 2.0 (0.6-2.4) K/uL [place] # (Auto) 1.0 H (0.0-0.8) K/uL Eos # (Auto) 0.6 (0.0-0.7) K/uL Baso # (Auto) 0.1 (0.0-0.1) K/uL Nucleated RBC % 1.6 /100WBC Nucleated RBCs # 0 K/uL Sodium 139 (136-145) mmol/L Potassium 4.3 (3.5-5.1) mmol/L Chloride 102 (98-107) mmol/L Carbon Dioxide 28.2 (21.0-32.0) mmol/L BUN 11 (7.0-18.0) mg/dL Creatinine 0.8 (0.6-1.0) mg/dL Est Cr Clr Drug Dosing 95.89 mL/min Estimated GFR (MDRD) > 60.0 ml/min Glucose 87 (74-106) mg/dL Calcium 9.7 (8.5-10.1) mg/dL Total Bilirubin 0.1 L (0.2-1.0) mg/dL AST 44 H (15-37) IU/L ALT 177 H (14-63) IU/L Alkaline Phosphatase 137 H (46-116) U/L Creatine Kinase 57 (26-308) U/L Troponin I < 0.050 (0.000-0.056) ng/mL Total Protein 8.4 H (6.4-8.2) g/dL Albumin 3.7 (3.4-5.0) g/dL Globulin 4.7 H (2.6-4.0) g/dL Albumin/Globulin Ratio 0.8 L (0.9-1.6) Urine HCG, Qual NEGATIVE (NEGATIVE) Meds: Medications Discontinued Medications Generic Name Dose Route Start Last Admin Trade Name Freq PRN Reason Stop Dose Admin Hydromorphone HCl 1 mg 02/22/21 20:42 02/22/21 20:58 Hydromorphone 1 Mg/Ml Syringe IM 02/22/21 20:43 1 mg ONETIME ONE Administration Iopamidol 100 ml 02/22/21 21:39 02/22/21 21:39 Iopamidol 755 Mg/Ml 500 Ml Multipack Bottle IVPUSH 02/22/21 21:40 100 ml ONETIME STA Administration Ondansetron HCl 4 mg 02/22/21 20:42 02/22/21 21:00 Ondansetron 4 Mg Tab.Dis PO 02/22/21 20:43 4 mg ONETIME ONE Administration Departure - Departure Time of Disposition: 23:29 Sepsis Event Note (ED) - Focused Exam Vital Signs: Vital Signs Temp Pulse Resp BP Pulse Ox 02/22/21 22:20 78 16 114/84 97 02/22/21 21:09 100 16 131/95 H 96 02/22/21 19:20 93 16 105/77 97 02/22/21 18:50 88 18 120/75 97 02/22/21 17:36 97.6 F 94 18 115/87 98 - My Orders Last 24 Hours: My Active Orders 02/22/21 23:25 HYDROmorphone [Dilaudid] 1 mg IVPUSH ONETIME ONE 02/22/21 23:25 Ketorolac [Toradol] 15 mg IVPUSH Q6H STA - Assessment/Plan Last 24 Hours: My Active Orders 02/22/21 23:25 HYDROmorphone [Dilaudid] 1 mg IVPUSH ONETIME ONE 02/22/21 23:25 Ketorolac [Toradol] 15 mg IVPUSH Q6H STA
[2021-02-22 18:22] LABS: BLOOD UREA NITROGEN,BUN 11 mg/dL (7.0-18.0); CARBON DIOXIDE,CO2 28.2 mmol/L (21.0-32.0); CHLORIDE,CL 102 mmol/L (98-107); GLUCOSE RANDOM 87 mg/dL (74-106); POTASSIUM,K 4.3 mmol/L (3.5-5.1); SODIUM,NA 139 mmol/L (136-145)
--- NOTE | 2021-02-22 18:33 | CR ---
INDICATION: Chest pain TECHNIQUE: Chest radiograph 2 views COMPARISON: 02/16/2021 FINDINGS: Mediastinum: The mediastinum is normal in appearance. The heart silhouette is normal in size and morphology. Lung: Minimal right basilar discoid atelectasis is present. No sign of pleural effusion seen. No pneumothorax is identified. Bone and Soft tissue: Unremarkable for age. IMPRESSION: 1. Minimal right basilar discoid atelectasis is present. Dictated by Vincenzo Foley MD @ 02/22/2021 6:31:18 PM Dictated by: Vincenzo Foley MD @ 02/22/2021 18:31:21 (Electronically Signed)
[2021-02-22] MEDS ORDERED: HYDROmorphone 1 MG/ML Syringe IM ONE (20:42)
[2021-02-22] MEDS ORDERED: Ondansetron 4 MG Tab.DIS PO ONE (20:42)
--- NOTE | 2021-02-22 21:11 | PCM.PRNOTE ---
- Free Text/Narrative Note: Anes Note I was called to ER to provide IV access on this difficult patient. A #20 TN was placed in cephalic vein near left wrist. Flushes with ease. Ramiro well. 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
[2021-02-22] MEDS ORDERED: Iopamidol 755 MG/ML 500 ML Multipack Bottle IVPUSH STA (21:39)
--- NOTE | 2021-02-22 22:39 | CT ---
INDICATION: Chest pain, shortness of breath, abdominal pain, history of gallbladder surgery TECHNIQUE: Contrast enhanced axial CT imaging through the chest, optimized for assessment of the pulmonary arterial tree. 100 mL Isovue 370 contrast agent was administered intravenously. Sagittal and coronal reconstructions are provided. COMPARISON: None FINDINGS: There is adequate opacification of the pulmonary arterial tree without evidence of thromboembolism. The main pulmonary artery is nonenlarged. The heart is normal in size. There is no pericardial effusion. The thoracic aorta is normal in caliber. There is no mediastinal lymphadenopathy. There is minimal dependent lung atelectasis. Lungs are otherwise clear. There is no pleural effusion or pneumothorax. The thoracic osseous structures are unremarkable. No significant abnormality is demonstrated in the visualized upper abdomen. IMPRESSION: No evidence of pulmonary thromboembolism. Please note that all CT scans at this facility use dose modulation, iterative reconstruction, and/or weight-based dosing when appropriate to reduce radiation dose to as low as reasonably achievable. Dictated by Keaton Mcnamara MD @ Feb 22 2021 10:32PM Signed by Dr. Keaton Mcnamara @ Feb 22 2021 10:37PM
--- NOTE | 2021-02-22 22:39 | CT ---
INDICATION: Abdominal pain. TECHNIQUE: CT abdomen and pelvis with intravenous contrast, 100 mL of Isovue-370. Coronal and sagittal reformats. COMPARISON: CT 02/04/2020. FINDINGS: Normal liver contour. No focal hepatic lesion. Portal and hepatic veins patent. Postsurgical changes of cholecystectomy. Fat stranding within the gallbladder fossa of as well as the bucky hepatis and infrahepatic omental/mesenteric fat to a lesser extent. No biliary dilatation. Pancreas, spleen, and adrenals appear normal. - Symmetric renal enhancement. No hydronephrosis bilaterally. Unremarkable bladder. Neutrally oriented uterus. - Bowel appears normal in caliber and enhancement diffusely. Nonvisualized appendix. No free air, free fluid, or lymphadenopathy. Focal regions of abdominal subcutaneous thickening, likely corresponding with laparoscopy portal sites. - Normal caliber abdominal aorta. Major branch vessels patent. Retroaortic left renal vein. No suspicious osseous lesion. IMPRESSION: 1. Fat stranding within the gallbladder fossa greater than bucky hepatis and infrahepatic mesenteric/omental fat, likely postoperative. No intraperitoneal free fluid or organized/drainable collection. 2. No additional acute abdominal/pelvic findings. 3. Please see separate same day chest CT report. Dictated by Clay Rocha MD @ 02/22/2021 10:38:00 PM Please note that all CT scans at this facility use dose modulation, iterative reconstruction, and/or weight-based dosing when appropriate to reduce radiation dose to as low as reasonably achievable. Dictated by: Clay Rocha MD @ 02/22/2021 22:38:29 (Electronically Signed)
[2021-02-22] MEDS ORDERED: HYDROmorphone 1 MG/ML Syringe IVPUSH ONE (23:25)
[2021-02-22] MEDS ORDERED: Ketorolac 15 MG/ML SDV IVPUSH STA (23:25)
== END 2021-02-22 23:46 | disposition home or self-care (01) ==
LOC: MW.ED 17:31
DX: R07.89 Other chest pain (principal); R10.13 Epigastric pain; Z90.49 Acquired absence of other specified parts of digestive tract; Z79.899 Other long term (current) drug therapy
CPT/HCPCS: 36415; 71046; 71275; 74177; 80053; 81025; 82550; 84484; 85025; 93005; 96372; 96374; 96375; 99285; A9270; J1170; J1885; Q9967; 36410; 93010; 99283